=== PATIENT | female | born 1975 | race Caucasian/White ===

== ENCOUNTER 2016-05-05 10:05 | Emergency (ER) | payer SELFPAY ==
[~2016-05-05] VITALS: Ht 160 cm; Wt 55.2 kg
[~2016-05-05 10:05] MED LIST: LEVO25TA9 PO; MELO-267 PO; OLAN10TA21 PO; OMEP40CA52 PO; PREG200C PO; ROPI2TAB6 PO; TIZA4TAB4 PO; TRAM50TA4 PO; VENL75CA60 PO
[2016-05-05 10:14] VITALS: Ht 160 cm; Wt 55.2 kg
--- OUTSIDE RECORDS SUMMARY | 2016-05-05 10:15 | XMS REPORT | Referral Summary ---
Author Author [facility], Family Medicine Organization [facility] Address Unknown Phone Unavailable Care Team Providers Care Reservation Agent Name Role Phone Pritesh Vitale Primary Care Physician [phone] Encounter VC Date(s): 03/05/16 - 03/05/16 [facility], [address] [place] [id number] Discharge Diagnosis: Acute bronchitis Discharge Diagnosis: Tobacco use Discharge Disposition: 01-Home or Self Care Attending Physician: Lexy Delgado APRN Admitting Physician: Lexy Delgado APRN Vital Signs Most recent to 1 oldest [Reference Range]: Temperature Tympanic 36.4 degC [36.6-38.1 degC] *LOW* (03/05/16 12:59 PM) Peripheral Pulse 98 bpm Rate [60-100 bpm] (03/05/16 12:59 PM) Respiratory Rate 20 br/min [14-20 br/min] (03/05/16 12:59 PM) Blood Pressure 122/88 mmHg [90-140/60-90 mmHg] (03/05/16 12:59 PM) SpO2 98 % (03/05/16 12:59 PM) Problem List Condition Effective Dates Status Health Status Informant Hypothyroidism(Confi Active rmed) Allergies, Adverse Reactions, Alerts Substance Reaction Severity Status sulfamethoxazole vomiting rash Active trimethoprim vomiting rash Active Medications Estradiol Patch 1 patches, Topical, Thu/, 2 x week, 0 Refill(s) Start Date: 01/21/16 Status: Ordered famotidine 20 mg oral tablet 20 mg 1 tabs, Oral, Daily, 0 Refill(s) Start Date: 01/21/16 Status: Ordered levothyroxine 25 mcg (0.025 mg) oral tablet 25 mcg 1 tabs, Oral, Daily, # 30 tabs, 6 Refill(s), Pharmacy: [id number], 1 tabs Oral Daily Start Date: 02/11/16 Status: Ordered Lyrica 1 tabs, Oral, BID, 0 Refill(s) Start Date: 01/21/16 Status: Ordered Lyrica 50 mg oral capsule See Instructions, Take twicr daily with 100 mg twice daily for a total dose of 150 mg twice daily, # 60 caps, 0 Refill(s), [facility] Start Date: 02/18/16 Status: Ordered meloxicam 15 mg oral tablet 15 mg 1 tabs, Oral, Daily, 0 Refill(s) Start Date: 01/21/16 Status: Ordered omeprazole 40 mg oral delayed release capsule 40 mg 1 caps, Oral, Daily, 0 Refill(s) Start Date: 01/21/16 Status: Ordered rOPINIRole 2 mg oral tablet 2 mg 1 tabs, Oral, Daily, # 30 tabs, 3 Refill(s), Pharmacy: [id number], 1 tabs Oral Daily Start Date: 02/11/16 Status: Ordered Strattera 40 mg oral capsule 40 mg 1 caps, Oral, qAM, 0 Refill(s) Start Date: 01/21/16 Status: Ordered tiZANidine 4 mg oral tablet 4 mg 1 tabs, Oral, q8hr, # 90 tabs, 1 Refill(s), Pharmacy: [id number], 1 tabs Oral q8hr Start Date: 03/04/16 Status: Ordered traMADol 50 mg oral tablet 50 mg 1 tabs, Oral, q12hr, as needed for pain, [facility], # 30 tabs, 0 Refill(s) Start Date: 02/18/16 Status: Ordered venlafaxine 150 mg oral tablet, extended release 150 mg 1 tabs, Oral, Daily, Decreased to 75 mg., # 30 tabs, 0 Refill(s) Start Date: 01/21/16 Status: Ordered Results No data available for this section Immunizations No data available for this section Procedures Procedure Date Related Diagnosis Body Site R ankle surgery s/p fx1 06/06/15 Hysterectomy 1 one ovary removed 2008 oopherctomy2 2008 Append[address] Keturah 2R/T endometriosis Social History Social History Type Response Smoking Status Current every day smoker; Type: Cigarettes; Tobacco use per day: 1/2 pack or more Assessment and Plan Extracted from: Title: Office Visit Note-bronchitis Author: Lexy Delgado [employer] Date: 03/05/16 Assessment/Plan 1.Acute bronchitis Zithromax 2 tabs today, then one tablet daily for 4 days. Increase fluid intake. Enc good handwashing. Recommend OTC mucinex per package instruction. Recommend OTC Tylenol and/or Ibuprofen per package instructions as needed for fever, pain, and body aches. No aspirin. Symptoms should improve over the next 1-2 weeks. If symptoms get worse, spikes fever, inc cough or shortness of breath to notify the office for further evaluation. I do not feel that any further extensive workup is indicated. However the patient is counseled that should new symptoms develop or the symptoms worsen, further evaluation and testing may be warranted as those symptoms declare themselves and that followup is of vital importance. 2.Tobacco use Encourage smoking cessation.
--- OUTSIDE RECORDS SUMMARY | 2016-05-05 10:16 | XMS REPORT | Continuity of Care Document ---
Author Author [facility] Organization [facility] Address Unknown Phone Unavailable Support Name Relationship Address Phone MAMADOU ALEXANDER DO Caregiver [address] [address] Unavailable GIANNA RODRIGUES DO Caregiver [address] [place] [address] Unavailable ROSITA NUNO Next Of Kin [address] [place] [address] Insurance Providers Guarantor YaakovJaciRadha Address [address] [place] [address] C Email [email or web address] Payer Self Pay Subscriber's Name Radha Nuno Relationship 18 Self Advance Directives Directive Response Recorded Date/Time Advanced Directives Type None 04/11/16 2:45pm Chief Complaint and Reason for Visit Chief Complaint Psychiatric Problems Reason for Visit Chronic ankle pain Schizoaffective disorder Problems Active Problems Medical Problem Onset Date Status Bimalleolar fracture of right ankle Unknown Acute Chronic ankle pain Unknown Acute Chronic pain Unknown Closed fracture dislocation of right ankle joint Unknown Acute Dehydration Unknown Acute Elevated liver enzymes Unknown Acute Gastroenteritis Unknown Acute Headache Unknown Acute Headache Unknown Acute Hypokalemia Unknown Acute Hyponatremia Unknown Acute Peripheral edema Unknown Acute Pyelonephritis Unknown Acute Schizoaffective disorder Unknown Acute Schizoaffective disorder, bipolar type Unknown Acute Shoulder strain Unknown Acute Wound dehiscence Unknown Acute Past Problems Medical Problem Onset Date Atypical chest pain Unknown Chest pressure Unknown Chronic pain of right ankle Unknown Diarrhea Unknown Dizziness Unknown Facial numbness Unknown Facial numbness Unknown Facial pain Unknown Fall on same level as cause of accidental injury Unknown Gastroenteritis Unknown Hip strain Unknown Intractable vascular headache Unknown Knee strain Unknown Muscle spasm Unknown Muscle spasms of lower extremity Unknown Nausea & vomiting Unknown Numbness and tingling Unknown Patient left without being seen Unknown Right ankle sprain Unknown Medications Current Home Medications Medication Dose Units Route Directions Days Qty Instructions Start Date Levothyroxine Sodium 25 Mcg Tablet 25 Mg Oral Before Breakfast Meloxicam 15 Mg Tablet 15 Mg Oral Daily 04/11/16 Olanzapine 10 Mg Tablet 10 Mg Oral Three Times A Day 04/11/16 Omeprazole 40 Mg Capsule.dr 40 Mg Oral Before Breakfast 03/19/16 Pregabalin (Lyrica) 200 Mg Capsule 200 Mg Oral Twice A Day Ropinirole Hcl 2 Mg Tablet 2 Mg Oral Daily 03/19/16 Tizanidine Hcl 4 Mg Tablet 4 Mg Oral Q8h @ 0100/0900/1700 Tramadol Hcl 50 Mg Tablet 50 Mg Oral Twice A Day 03/19/16 Venlafaxine Hcl (Effexor Xr) 75 Mg Cap.er.24h 75 Mg Oral Daily Past Home Medications Medication Directions Ordered Status Acetaminophen (Tylenol) 325 Mg Tablet, 1-2 Tab Oral Four Times Daily as needed for Prn Orders 06/07/15 Discontinued Acetaminophen/Hydrocodone Bitart (Hydrocodone-Acetamin 2.5-108/5) 5 Ml Solution , 5 Ml Oral Every 4 Hours as needed for Pain 12/14/15 Discontinued Albuterol Sulfate (Ventolin Hfa 90 Mcg/Actuation) 18 Gm Hfa.aer.ad, 1-2 Puff Oral Inhalation Every 4 Hours as needed for Cough/Congestion 11/09/15 Discontinued Albuterol Sulfate (Albuterol Sulfate Hfa) 8.5 Gm Hfa.aer.ad, 1 - 2 Puff Inhalation Every 4-6 Hours as needed 12/19/11 Discontinued Albuterol Sulfate (Albuterol Sulfate Hfa) 8.5 Gm Hfa.aer.ad, Four Times Daily 12/19/10 Discontinued Albuterol Sulfate 1.25 Mg/3 Ml Vial.neb., 1.25 Mg Inhalation Twice A Day 19/01 Discontinued Bupropion Hcl (Wellbutrin Xl) 300 Mg Tab.er.24h, 1 Oral Daily 10/27/13 Discontinued Cyanocobalamin (Vitamin B-12) (Vitamin B-12) 1,000 Mcg Tablet, 1 Tab Oral Daily 11/26/15 Discontinued Desonide 15 Gm Cream.gm., 1 Applic Topical As Needed 09/05/11 Discontinued Desvenlafaxine Succinate (Pristiq Er) 100 Mg Tab.er.24h, 100 Mg Oral Daily Discontinued Diphenhydramine Hcl (Benadryl Allergy) 25 Mg Tablet, 2 Tab Oral Every 4 Hours as needed for Allery Symptoms 01/01/15 Discontinued Diphenhydramine Hcl (Benadryl Allergy) 25 Mg Tablet, 25 Mg Oral As Needed 23/02 Discontinued Estradiol (Minivelle) 1 Each Patch.tdsw, 1 Patch Transderm Twice A Week 11/08 Discontinued Fluticasone Propionate (Flonase Allergy Relief 50 Mcg/Actuation Nasal) 9.9 Ml [place].susp, 1 SprayEach Nostril Daily 11/09/15 Discontinued Folic Acid 1 Mg Tablet, 1 Tab Oral Daily 11/26/15 Discontinued Geodon , 02/26/14 Discontinued Guaifenesin/Dextromethorphan (Mucinex Fast-Max Dm Max Liquid) 180 Ml Liquid, 2 Tbs Oral As Needed 01/01/15 Discontinued Hydrocodone Bit/Acetaminophen (Lortab 5) 1 Tab Tablet, 1 Tab Oral As Needed 09/12/11 Discontinued Hydrocodone/Acetaminophen ([place] 5-325 Tablet) 1 Each Tablet, 1 Tab Oral Every 4-6 Hours 01/01/15 Discontinued Iron , Daily 06/22/08 Discontinued Levofloxacin 750 Mg Tablet, 750 Mg Oral Daily 12/24/15 Discontinued Levothyroxine Sodium 25 Mcg Tablet, 25 Mcg Oral Before Breakfast 11/26/15 Discontinued Melatonin 10 Mg Capsule, 10 Mg Oral Bedtime as needed for Insomnia 11/09/15 Discontinued Nitrofurantoin Macrocrystal (Nitrofurantoin) 100 Mg Capsule, 100 Mg Oral Twice A Day 09/12/11 Discontinued Omeprazole 40 Mg Capsule.dr, 40 Mg Oral Before Breakfast 11/09/15 Discontinued Ondansetron (Zofran Odt) 4 Mg Tab.rapdis, 4 Mg Oral Every 6-8 Hours 01/01/15 Discontinued Ondansetron Hcl (Zofran) 4 Mg Tablet, 4 Mg Oral As Needed 06/22/08 Discontinued Oxycodone/Acetaminophen (Percocet 7.5-325 Mg Tablet) 1 Each Tablet, 2 Tab Oral Every 6 Hours as needed for Pain 06/07/15 Discontinued Pantoprazole Sodium (Protonix) 40 Mg Tablet.dr, 40 Mg Oral Daily 06/22/08 Discontinued Phenazopyridine Hcl 200 Mg Tablet, 200 Mg Oral Three Times A Day 09/12/11 Discontinued Potassium Chloride 10 Meq Capsule.sa, 10 Meq Oral Daily 12/22/10 Discontinued Promethazine Hcl 25 Mg Tablet, 25 Mg Oral Twice A Day 12/19/10 Discontinued Propoxyphene/Acetaminophen (Darvocet-N 100 Tablet) 1 Tab Tablet, 1 Tab Oral As Needed 06/22/08 Discontinued Ropinirole Hcl 1 Mg Tablet, 1 Mg Oral Daily 11/26/15 Discontinued Saphris (Asenapine) , 10 Mg Sublingual Twice A Day 09/05/11 Discontinued Strattera , 02/26/14 Discontinued Trazodone Hcl 100 Mg Tablet, 100 Mg Oral Twice A Day 12/19/10 Discontinued Triamcinolone Acetonide (Triamcinolone Acetonide 0.1%) 15 Gm Cream.gm., 1 Applic Topical As Needed 09/05/11 Discontinued Ziprasidone Hcl (Geodon) 60 Mg Capsule, 60 Mg Twice A Day 10/27/13 Discontinued Social History Social History Problem Response Recorded Date/Time Onset Date Status Chewing Tobacco Status No 05/16/2013 5:20pm Not Applicable Not Applicable Hx Substance Use Y HX OF MARIJUANA FOR PAIN 04/11/2016 2:45pm Not Applicable Not Applicable Hx Alcohol Use No 04/11/2016 2:45pm Not Applicable Not Applicable Has the pt used tobacco in the last 12 months Yes 12/20/2015 11:05am Not Applicable Not Applicable Tobacco Usage smoke 01/10/2015 8:38am Not Applicable Not Applicable Query Response Start Date Stop Date Smoking Status Current every day smoker Hospital Discharge Instructions No hospital discharge instructions. Plan of Care Discharge Date 04/11/16 6:07pm Disposition 01 DISCHARGED HOME, SELF-CARE Condition at Discharge Improved Instructions/Education Provided Chronic Pain (ED) Prescriptions See Medication Section Referrals GIANNA RODRIGUES DO Address: [address] [place] [address] [phone] Note: VANNESSA CARMEN MD Address: [address] [place] [id number] Additional Instructions/Education Take your prescribed medications as ordered. Follow with your PCP Thursday for re-evaluation and referral to lead based paint technician. Keep appointment with PV Thursday. Follow treatment plan. Care Plan and Goals Physician Care Plan Problem: Chronic ankle pain, Scizoaffective disorder Goal: Follow up with primary care provider Instructions: Take medications and follow care plan as discussed/written Functional Status No functional status results. Allergies, Adverse Reactions, Alerts Allergen Type Severity Reaction Status Last Updated Penicillin Allergy Unknown RASH Active 04/11/16 Sulfa (Sulfonamide Antibiotics) Allergy Unknown Active 04/11/16 Sulfamethoxazole Allergy Unknown Active 04/11/16 Trimethoprim Allergy Unknown Active 04/11/16 Gluten Adverse Reaction Intermediate SICK/ VOMITING Active 04/11/16 Immunizations Query Response on File Recorded Date/Time Hx Influenza Vaccination Y NOV 2015 12/20/15 11:05am Hx Pneumococcal Vaccination No 12/20/15 11:05am Hx Tetanus, Diptheria, Pertussis N/A SKIN INTACT 02/26/14 10:36pm Hx Influenza Vaccination Y NOV 2015 12/20/15 11:05am Hx Tetanus, Diptheria, Pertussis N/A SKIN INTACT 02/26/14 10:36pm DTaP Vaccine History 201404/11/16 2:45pm Influenza Vaccine Hx 06/07/15 04/11/16 2:45pm Tdap Vaccine Hx UTD 01/04/16 1:21am Vital Signs Acute Vital Signs Vital Response Date/Time Temperature (Fahrenheit) 98.0 deg F (96.8 - 99.1) 04/11/2016 6:18pm Temperature (Calculated Celsius) 36.90156 degrees C (36.0 - 37.3) 04/11/2016 6:18pm Pulse Rate (adult) 86 bpm (60 - 100) 04/11/2016 6:18pm Respiratory Rate 20 breaths/min (10 - 20) 04/11/2016 6:18pm O2 Sat by Pulse Oximetry 97 % (90 - 100) 04/11/2016 6:18pm Blood Pressure 145/76 mm Hg 04/11/2016 6:18pm Height (Feet) 5 feet 04/11/2016 2:45pm Height (Inches) 2.00 inches 04/11/2016 2:45pm Weight (Kilograms) 57.200 kg 04/11/2016 2:45pm Body Mass Index (BMI) 23.0 04/11/2016 2:45pm Results Laboratory Results Test Name Result Units Flags Reference Collection Date/Time Result Date/ Time Comments White Blood Count 9.6 T/MM3 4.5-11.0 04/11/2016 3:40pm 04/11/2016 3: 45pm Red Blood Count 4.98 M/MM3 4.00-5.20 04/11/2016 3:40pm 04/11/2016 3: 45pm Hemoglobin 14.3 GM/DL 12-16 04/11/2016 3:40pm 04/11/2016 3:45pm Hematocrit 42.3 % 36-46 04/11/2016 3:40pm 04/11/2016 3:45pm Mean Corpuscular Volume 84.9 UM3 80-100 04/11/2016 3:40pm 04/11/2016 3: 45pm Mean Corpuscular Hemoglobin 28.7 UUG 26-34 04/11/2016 3:40pm 2016 3:45pm Mean Corpuscular Hemoglobin Concent 33.8 GM/DL 31-37 04/11/2016 3:40pm 04/11/2016 3:45pm RDW Standard Deviation 50.0 FL 36.9-50.2 04/11/2016 3:40pm 04/11/2016 3 :45pm Platelet Count 393 T/MM3 130-400 04/11/2016 3:40pm 04/11/2016 3:45pm Mean Platelet Volume 9.8 UM3 9.4-12.4 04/11/2016 3:40pm 04/11/2016 3: 45pm Neutrophils (%) (Auto) 68.0 % H 33-66 04/11/2016 3:40pm 04/11/2016 3: 45pm Lymphocytes (%) (Auto) 24.7 % 23-45 04/11/2016 3:40pm 04/11/2016 3: 45pm Monocytes (%) (Auto) 5.4 % 0-9.0 04/11/2016 3:40pm 04/11/2016 3:45pm Eosinophils (%) (Auto) 1.3 % 0-4 04/11/2016 3:40pm 04/11/2016 3:45pm Basophils (%) (Auto) 0.3 % 0-2 04/11/2016 3:40pm 04/11/2016 3:45pm Immature Granulocyte % (Auto) 0.3 % 0.0-0.5 04/11/2016 3:40pm 2016 3:45pm Absolute Neutrophils (auto) 6.5 T/MM3 1.8-7.7 04/11/2016 3:40pm 2016 3:45pm Absolute Lymphocytes (auto) 2.4 T/MM3 1-4.8 04/11/2016 3:40pm 2016 3:45pm Absolute Monocytes (auto) 0.5 T/MM3 0-0.8 04/11/2016 3:40pm 04/11/2016 3:45pm Absolute Eosinophils (auto) 0.1 T/MM3 0-0.5 04/11/2016 3:40pm 2016 3:45pm Absolute Basophils (auto) 0.0 T/MM3 0-0.2 04/11/2016 3:40pm 04/11/2016 3:45pm Absolute Immature Granulocyte (auto 0.03 T/MM3 0.00-0.03 04/11/2016 3: 40pm 04/11/2016 3:45pm Icterus Index < 2 0-7 04/11/2016 3:40pm 04/11/2016 3:55pm Chemistry Specimen Hemolysis < 15 0-25 04/11/2016 3:40pm 04/11/2016 3 :55pm 0-25: Specimen Exhibited No Hemolysis. Turbidity < 20 0-20 04/11/2016 3:40pm 04/11/2016 3:55pm Sodium Level 144 MEQ/L 134-144 04/11/2016 3:40pm 04/11/2016 3:55pm Potassium Level 3.8 MEQ/L 3.6-5 04/11/2016 3:40pm 04/11/2016 3:55pm Chloride Level 110 MEQ/L H 98-107 04/11/2016 3:40pm 04/11/2016 3:55pm Carbon Dioxide Level 25 MEQ/L 22-30 04/11/2016 3:40pm 04/11/2016 3: 55pm Anion Gap 9 MEQ/L 5-15 04/11/2016 3:40pm 04/11/2016 3:55pm Blood Urea Nitrogen 9.0 MG/DL 7-17 04/11/2016 3:40pm 04/11/2016 3:55pm Creatinine 0.8 MG/DL 0.7-1.2 04/11/2016 3:40pm 04/11/2016 3:55pm BUN/Creatinine Ratio 11 RATIO 6-26 04/11/2016 3:40pm 04/11/2016 3:55pm Glomerular Filtration Rate Calc 80 04/11/2016 3:40pm 04/11/2016 3: 55pm Glucose Level 112 MG/DL H 65-110 04/11/2016 3:40pm 04/11/2016 3:55pm Calculated Osmolality 277 MOSM/KG 261-280 04/11/2016 3:40pm 04/11/2016 3:55pm Calcium Level 10.3 MG/DL H 8.4-10.2 04/11/2016 3:40pm 04/11/2016 3:55pm Total Bilirubin 0.60 MG/DL 0.20-1.30 04/11/2016 3:40pm 04/11/2016 3: 55pm Alkaline Phosphatase 102 U/L 38-126 04/11/2016 3:40pm 04/11/2016 3: 55pm Total Protein 8.2 G/DL 6.3-8.2 04/11/2016 3:40pm 04/11/2016 3:55pm Albumin 4.5 G/DL 3.5-5.0 04/11/2016 3:40pm 04/11/2016 3:55pm Globulin 3.7 G/DL H 2.4-3.6 04/11/2016 3:40pm 04/11/2016 3:55pm Albumin/Globulin Ratio 1.2 RATIO 1.1-2.2 04/11/2016 3:40pm 04/11/2016 3 :55pm Aspartate Amino Transf (AST/SGOT) 19 U/L 14-36 04/11/2016 3:40pm 2016 3:55pm Alanine Aminotransferase (ALT/SGPT) 30 U/L 9-52 04/11/2016 3:40pm 04/11 3:55pm Acetaminophen Level < 10 UG/ML L 10-04/11/2016 3:40pm 04/11/2016 4: 03pm TOXIC <4 HR POST INGESTION: >150 MG/L; TOXIC <12 HR POST INGESTION: >50 MG/L Salicylates Level < 1.0 MG/DL L 2-20 04/11/2016 3:40pm 04/11/2016 4: 03pm Alcohol, Quantitative <10 MG/DL <10 04/11/2016 3:40pm 04/11/2016 4: 03pm Thyroid Stimulating Hormone (TSH) 2.95 MIU/L D 0.47-4.68 04/11/2016 3: 40pm 04/11/2016 4:29pm Urine Collection Type VOIDED-NOT CC-MIDSTR 04/11/2016 4:16pm 2016 4:39pm Urine Color YELLOW YELLOW 04/11/2016 4:16pm 04/11/2016 4:39pm Urine Turbidity CLEAR CLEAR 04/11/2016 4:16pm 04/11/2016 4:39pm Urine Specific [place] 1.015 1.015-1.025 04/11/2016 4:16pm 2016 4:39pm Urine pH 7.0 5.0-8.0 04/11/2016 4:16pm 04/11/2016 4:39pm Urine Leukocyte Esterase NEGATIVE NEGATIVE 04/11/2016 4:16pm 2016 4:39pm Urine Nitrite NEGATIVE NEGATIVE 04/11/2016 4:16pm 04/11/2016 4:39pm Urine Protein NEGATIVE NEGATIVE 04/11/2016 4:16pm 04/11/2016 4:39pm Urine Glucose (UA) NEGATIVE NEGATIVE 04/11/2016 4:16pm 04/11/2016 4: 39pm Urine Ketones NEGATIVE NEGATIVE 04/11/2016 4:16pm 04/11/2016 4:39pm Urine Urobilinogen 0.2 EU/DL NORMAL 04/11/2016 4:16pm 04/11/2016 4: 39pm Urine Bilirubin NEGATIVE NEGATIVE 04/11/2016 4:16pm 04/11/2016 4: 39pm Urine Blood NEGATIVE NEGATIVE 04/11/2016 4:16pm 04/11/2016 4:39pm Urinalysis Comment MICROSCOPIC NOT IND. 04/11/2016 4:16pm 2016 4:39pm Procedures Procedure Status Date Provider(s) Routine venipuncture Completed 01/19/16 Comprehen metabolic panel Completed 01/19/16 Emergency dept visit Completed 01/19/16 Mri lumbar spine w/o dye Completed 02/27/16 Musc test done w/n test comp Completed 03/19/16 Nrv cndj test 11-12 studies Completed 03/19/16 Ct head/brain w/o dye Completed 03/19/16 Ther/proph/diag inj sc/im Completed 03/19/16 Ther/proph/diag inj sc/im Completed 03/19/16 Emergency dept visit Completed 03/19/16 [id number]"INJECTION, PROCHLORPERAZINE, UP TO 10 MG" Completed 01/11/17 [id number]"INJECTION, HYDROMORPHONE, UP TO 4 MG" Completed 03/19/16"INJECTION, KETOROLAC TROMETHAMINE, PER 15 MG" Completed 03/19/16"INJECTION, ORPHENADRINE CITRATE, UP TO 60 MG" Completed 03/19/16 Encounters Encounter Location Arrival/Admit Date Discharge/Depart Date Attending Provider Departed Emergency Room [facility] 04/11/16 2:44pm 04/11/16 6: 07pm MAMADOU ALEXANDER DO Departed Emergency Room [facility] 03/19/16 8:46pm 03/19/16 9: 51pm SWATI HOWARD MD Registered Clinic [facility] 03/19/16 1:52pm KAREN VALLADARES MD Registered [facility] 02/27/16 1:55pm KAREN VALLADARES MD Departed Emergency Room [facility] 01/19/16 11:31pm 01/20/16 2: 03am STEPHEN MARINO DO Recent Diagnosis
--- OUTSIDE RECORDS SUMMARY | 2016-05-05 10:16 | XMS REPORT | Referral Summary ---
Author Author [facility], Family Medicine Organization [facility] Address Unknown Phone Unavailable Care Team Providers Care Photography Teacher Name Role Phone Pritesh Vitale Primary Care Physician [phone] Encounter Date(s): 03/11/16 - 03/11/16 [facility], [address] [place] [address]- Discharge Diagnosis: Muscle twitching Discharge Diagnosis: Other chronic osteomyelitis, right ankle and foot Discharge Diagnosis: Acute bronchitis Discharge Diagnosis: Leg paresthesia Discharge Diagnosis: Peripheral neuropathic pain Discharge Diagnosis: Hypothyroidism Discharge Disposition: 01-Home or Self Care Attending Physician: Lexy Delgado APRN Admitting Physician: Lexy Delgado APRN Vital Signs Most recent to 1 oldest [Reference Range]: Temperature Tympanic 35.9 degC [36.6-38.1 degC] *LOW* (03/11/16 9:35 AM) Peripheral Pulse 88 bpm Rate [60-100 bpm] (03/11/16 9:35 AM) Blood Pressure 92/50 mmHg [90-140/60-90 mmHg] (03/11/16 9:35 AM) Problem List Condition Effective Dates Status Health Status Informant Hypothyroidism(Confi Active rmed) Allergies, Adverse Reactions, Alerts Substance Reaction Severity Status sulfamethoxazole vomiting rash Active trimethoprim vomiting rash Active Medications Estradiol Patch 1 patches, Topical, Mon/Thurs, 2 x week, 0 Refill(s) Start Date: 01/21/16 Status: Ordered famotidine 20 mg oral tablet 20 mg 1 tabs, Oral, Daily, 0 Refill(s) Start Date: 01/21/16 Status: Ordered levothyroxine 25 mcg (0.025 mg) oral tablet 25 mcg 1 tabs, Oral, Daily, # 30 tabs, 6 Refill(s), Pharmacy: [id number], 1 tabs Oral Daily Start Date: 02/11/16 [...] tablet 15 mg 1 tabs, Oral, Daily, # 30 tabs, 2 Refill(s), Pharmacy: [id number], 1 tabs Oral Daily Start Date: 03/11/16 Status: Ordered omeprazole 40 mg oral delayed release capsule 40 mg 1 caps, Oral, Daily, 0 Refill(s) Start Date: 01/21/16 Status: Ordered rOPINIRole 2 mg oral tablet 2 mg 1 tabs, Oral, Daily, # 30 tabs, 3 Refill(s), Pharmacy: [id number], 1 tabs Oral Daily Start Date: 02/11/16 Status: Ordered Strattera 40 mg oral capsule 40 mg 1 caps, Oral, qAM, 0 Refill(s) Start Date: 01/21/16 Status: Ordered tiZANidine 4 mg oral tablet 4 mg 1 tabs, Oral, q8hr, # 90 tabs, 1 Refill(s), Pharmacy: [id number], 1 tabs Oral q8hr Start Date: 03/04/16 Status: Ordered venlafaxine 150 mg oral tablet, extended release 150 mg 1 tabs, Oral, Daily, Decreased to 75 mg., # 30 tabs, 0 Refill(s) Start Date: 01/21/16 Status: Ordered Results Chemistry Most recent to 1 oldest [Reference Range]: TSH with Reflex Free 0.83 T4 [0.35-4.94] (03/11/16 10:30 AM) Immunizations No data available for this section Procedures Procedure Date Related Diagnosis Body Site Collection of venous blood by venipuncture 03/11/16 R ankle surgery s/p fx1 06/06/15 Hysterectomy 1 one ovary removed 2008 oopherctomy2 2008 Appendectomy [address] Keturah 2R/T endometriosis Social History Social History Type Response Smoking Status Current every day smoker; Type: Cigarettes; Tobacco use per day: 1/2 pack or more Assessment and Plan Extracted from: Title: Office Visit Note-med check Author: Lexy Delgado APRN Date: Assessment/Plan 1.Hypothyroidism Recheck TSH today. We'll notify herof results. Ordered: TSH with Reflex Free T4 2.Leg paresthesia Continue to follow with Dr. Sellers. Cont Lyrica. 3.Muscle twitching Continue Requip at same dose. 4.Other chronic osteomyelitis, right ankle and foot Monitor closely for increased drainage or redness. 5.Peripheral neuropathic pain DC tramadol as it was minimallyofficial. Follow-up with Dr. Sellers for issues. 6.Acute bronchitis I think her cough is post infectious. Recommend continued use of Mucinex. Increase fluid intake. Humidified air. Encourage her to continue following with [facility]. Some of her issues may be related to medicationeffects. Discussed with patient the importance of trying to improve her general health by lifestyle changes. Encouraged her to decrease her Dr. Garcia intake and change towater. Discussed good nutrition.Avoid illicit drugs. Encouraged her to quit smoking. Encourage daily exercise. Discussed good sleep hygiene. Care of herself well in general healthfeel better.
--- OUTSIDE RECORDS SUMMARY | 2016-05-05 10:17 | XMS REPORT | Referral Summary ---
Author Author [facility] Organization [facility] Address Unknown Phone Unavailable Care Team Providers Care Tie Buyer Name Role Phone No PCP, States Primary Care Physician [phone] Encounter Date(s): 01/21/16 - 01/21/16 [facility] [address] [place] [address]- Discharge Diagnosis: Syncope Discharge Diagnosis: Muscle twitching Discharge Diagnosis: Schizo affective schizophrenia Discharge Diagnosis: Moderate major depression Discharge Diagnosis: Other chronic osteomyelitis, right ankle and foot Discharge Diagnosis: Hx of substance abuse Discharge Diagnosis: Weight loss Discharge Diagnosis: Bipolar disorder Discharge Disposition: 01-Home or Self Care Attending Physician: Lexy Delgado APRN Admitting Physician: Lexy Delgado APRN Vital Signs Most recent to 1 oldest [Reference Range]: Temperature Tympanic 36 degC [36.6-38.1 degC] *LOW* (01/21/16 8:41 AM) Peripheral Pulse 64 bpm Rate [60-100 bpm] (01/21/16 8:41 AM) Blood Pressure 100/60 mmHg [90-140/60-90 mmHg] (01/21/16 8:41 AM) Problem List No data available for this section Allergies, Adverse Reactions, Alerts Substance Reaction Severity Status sulfamethoxazole vomiting rash Active trimethoprim vomiting rash Active Medications Estradiol Patch 1 patches, Topical, Mon/, 2 x week, 0 Refill(s) Start Date: 01/21/16 Status: Ordered famotidine 20 mg oral tablet 20 mg 1 tabs, Oral, Daily, 0 Refill(s) Start Date: 01/21/16 Status: Ordered levoFLOXacin 750 mg oral tablet mg tabs, Oral, q24hr, 0 Refill(s) Start Date: 01/12/16 Status: Ordered Lyrica 1 tabs, Oral, BID, 0 Refill(s) Start Date: 01/21/16 Status: Ordered meloxicam 15 mg oral tablet 15 mg 1 tabs, Oral, Daily, 0 Refill(s) Start Date: 01/21/16 Status: Ordered omeprazole 40 mg oral delayed release capsule 40 mg 1 caps, Oral, Daily, 0 Refill(s) Start Date: 01/21/16 Status: Ordered Strattera 40 mg oral capsule 40 mg 1 caps, Oral, qAM, 0 Refill(s) Start Date: 01/21/16 Status: Ordered tiZANidine 4 mg oral tablet 4 mg 1 tabs, Oral, q8hr, 0 Refill(s) Start Date: 01/21/16 Status: Ordered venlafaxine 150 mg oral tablet, [...] and Plan Extracted from: Title: Office Visit Note-new Author: Lexy Delgado BURR BENCH OPERATOR Date: patient Assessment/Plan 1.Syncope Unknown etiology. Has had cardiology eval per pt. Considering outpatient evaluation that she has had already a think it's worthwhile to gather information, blanca then set up a plan of care from there. Discussed with patient the importance of taking care of herself general. Good hydration. Good nutrition. Quit smoking. Get adequate sleep. Plan follow-up in one week or sooner if anything changes.Patient sign multiple medical releases today. I instructed her not to drive. Work restrictiongiven to say no driving. Recommend she limit her work days to 8 hours a day. 2.Muscle twitching I question if r/t Effexor + Levaquin. 3.Weight loss unknown etiology. Gather last labs. Enc high protein diet. Good nutrition. Avoid soda. 4.Other chronic osteomyelitis, right ankle and foot Cont to follow with Dr. Rebollar. 5.Schizo affective schizophrenia Talked with Rupali Torres APRN at . Multiple no shows. On Strattera since 2013. Effexor started in June. According to refill record does not appear to be taking Strattera. Discussed possible side effects of Effexor. She agrees to decrease the dose to 75 mg a day. I can reevaluate her next week if she's had any improvement in her symptomatology is we'll discontinue the Effexor. She will plan to follow up with her and get her back into counseling. 6.Bipolar disorder 7.Moderate major depression 8.Hx of substance abuse Patient has not been showing up for her drug abuse counseling sessions purlucas Torres.
--- OUTSIDE RECORDS SUMMARY | 2016-05-05 10:17 | XMS REPORT | Referral Summary ---
Author Author [facility], [facility] Organization [facility] Address Unknown Phone Unavailable Care Team Providers Care Preboarder Name Role Phone Pritesh Vitale Primary Care Physician [phone] Encounter Date(s): 02/11/16 - 02/11/16 [facility] [address] [place] [address]- Discharge Diagnosis: Hypothyroidism Discharge Diagnosis: Right ankle pain Discharge Diagnosis: Restless leg syndrome Discharge Diagnosis: Leg paresthesia Discharge Diagnosis: Schizoaffective disorder Discharge Diagnosis: Depression Discharge Diagnosis: Major depressive disorder, recurrent, mild Discharge Diagnosis: Schizoaffective disorder, depressive type Discharge Disposition: 01-Home or Self Care Attending Physician: Jayjay Vitale MD Admitting Physician: Jayjay Vitale MD Vital Signs Most recent to 1 oldest [Reference Range]: Temperature Tympanic 36.0 degC [36.6-38.1 degC] *LOW* (02/11/16 8:34 AM) Peripheral Pulse 100 bpm Rate [60-100 bpm] (02/11/16 8:34 AM) Respiratory Rate 16 br/min [14-20 br/min] (02/11/16 8:34 AM) Blood Pressure 104/80 mmHg [90-140/60-90 mmHg] (02/11/16 8:34 AM) Problem List Condition Effective Dates Status [...] Daily, # 30 tabs, 6 Refill(s), [id number], 1 tabs Oral Daily Start [...] Daily, # 30 tabs, 3 Refill(s), [id number], 1 tabs Oral Daily Start [...] Hysterectomy 1 one ovary removed 2008 oopherctomy2 2009 Appendectomy [address] Keturah 2R/T endometriosis Social History Social History Type Response Smoking Status Current every day smoker; Type: Cigarettes; Tobacco use per day: 1/2 pack or more Assessment and Plan Extracted from: Title: Office Visit Note Author: Jayjay Vitale MD Date: 02/11/16 Assessment/Plan 1.Hypothyroidism I recommended resuming [id number] g dailyarea and recheck TSH in 6-8 weeks. Ordered: Office Visit Level 4 Est 61058 2.Restless leg syndrome I'm going to increase her ropinirole dosage to 2 mg at at bedtime. She'll keep me postedas to whether this is beneficial. I 've recommended a one-month follow-up. Ordered: Office Visit Level 4 Est 36275 3.Right ankle pain No specific new treatment at this time. She will continue to follow-up with Dr. Rebollar. Ordered: Office Visit Level 4 Est 78892 4.Leg paresthesia She has a follow-up appointment with Dr. Newby later this month I encouraged her to keep that appointment for ongoing evaluation of this problem. Ordered: Office Visit Level 4 Est 46452 5.Depression, No change in current treatment. I did encourage her to continue to follow up with [facility]. Major depressive disorder, recurrent, mild Ordered: Office Visit Level 4 Est 49856 6.Schizoaffective disorder, Continue to follow-up with [facility]. Schizoaffective disorder, depressive type Ordered: Office Visit Level 4 Est 56709
--- OUTSIDE RECORDS SUMMARY | 2016-05-05 10:19 | XMS REPORT | Continuity of Care Document ---
Author Author [facility] Organization [facility] Address Unknown Phone Unavailable Support Name Relationship Address Phone BKLUIS FOWLER Caregiver [facility] [address] [place], [place] [phone] SAMANTHA GARCIA MD Caregiver [facility] [address] [place] [address] FLORIDALMA SCOTT Next Of Kin [address] [place] [address] CP Insurance Providers Payer Name Policy Number Subscriber Name Relationship Self Pay Donna Nuno 19 Self Problems Medical Problems Problem Onset Date Status Gastroenteritis Unknown Active Elevated liver enzymes Unknown Active Peripheral edema Unknown Active Headache Unknown Active Headache Unknown Active Medications Medication Dose Route Sig Days/Qty Instructions Order Date Discontinued Date Status Propoxyphene/Acetaminophen 1 Tab PO NEEDED 06/22/08 09/24/08 Discontinued [Iron ] DAILY 06/22/08 09/24/08 Discontinued Pantoprazole Sodium 40 Mg PO DAILY 06/22/08 09/24/08 Discontinued Ondansetron Hcl 4 Mg PO NEEDED 06/22/08 09/24/08 Discontinued Trazodone Hcl 100 Mg PO TWICE A DAY 12/19/10 03/16/11 Discontinued Promethazine Hcl 25 Mg PO TWICE A DAY 12/19/10 03/16/11 Discontinued Albuterol Sulfate FOUR TIMES DAILY 12/19/10 03/16/11 Discontinued Albuterol Sulfate 1.25 Mg IH TWICE A DAY 12/19/10 03/16/11 Discontinued Potassium Chloride 10 Meq PO DAILY 12/22/10 03/16/11 Discontinued Diphenhydramine Hcl 25 Mg PO NEEDED 08/25/11 12/19/11 Discontinued [Saphris (asenapine)] 10 Mg SL TWICE A DAY 09/05/11 12/19/11 Discontinued Desonide 1 Applic TP NEEDED 09/05/11 09/12/11 Discontinued Triamcinolone Acetonide 1 Applic TP NEEDED 09/05/11 09/12/11 Discontinued Phenazopyridine Hcl 200 Mg PO THREE TIMES A DAY 09/12/11 12/19/11 Discontinued Nitrofurantoin Macrocrystal 100 Mg PO TWICE A DAY 09/12/11 12/19/11 Discontinued Hydrocodone Bit/Acetaminophen 1 Tab PO NEEDED 09/12/11 12/19/11 Discontinued Albuterol Sulfate 1 - 2 Puff INH EVERY 4-6 HOURS PRN 12/19/11 Discontinued Desvenlafaxine Succinate 50 Mg PO DAILY 05/12/13 Active Ziprasidone HCl 60 Mg TWICE A DAY 10/27/13 Active Bupropion HCl 1 PO DAILY 10/27/13 Active Social History Social History Problem Response Recorded Date/Time Smoking Status Current every day smoker 10/27/2013 10:30am When did patient START smoking? 1990 10/27/2013 10:30am When did patient STOP smoking? N/A 10/27/2013 10:30am Chewing Tobacco Status No 05/16/2013 5:20pm Hx Substance Use N HX OF 10/27/2013 10:30am Hx Alcohol Use No 10/27/2013 10:30am Query Response Start Date Stop Date Smoking Status Current every day smoker Hospital Discharge Instructions No hospital discharge instructions. Plan of Care No plan of care. Functional Status Query Response Date Recorded Physical Hygiene Self October 27, 2013 10:30am Disabilities None October 27, 2013 10:30am Devices Used None October 27, 2013 10:30am Dressing Self October 27, 2013 10:30am Ambulation Self October 27, 2013 10:30am Diet Self October 27, 2013 10:30am Mental Status Alert Oriented October 27, 2013 10:30am Disabilities None October 27, 2013 10:30am Devices Used None October 27, 2013 10:30am Physical Hygiene Self October 27, 2013 10:30am Dressing Self October 27, 2013 10:30am Ambulation Self October 27, 2013 10:30am Diet Self October 27, 2013 10:30am Allergies, Adverse Reactions, Alerts Allergen Type Severity Reaction Status Last Updated Penicillin Allergy Unknown RASH Active 10/27/13 Sulfa (Sulfonamide Antibiotics) Allergy Unknown Active 10/27/13 Sulfamethoxazole Allergy Unknown Active 10/27/13 Trimethoprim Allergy Unknown Active 10/27/13 Gluten Adverse Reaction Intermediate SICK/ VOMITING Active 10/27/13 Immunizations Name Given Type Hx Influenza Vaccination Yes Historical Hx Pneumococcal Vaccination No Historical Hx Tetanus, Diptheria, Pertussis N/A SKIN INTACT Historical Hx Influenza Vaccination Yes Historical Hx Tetanus, Diptheria, Pertussis N/A SKIN INTACT Historical Vital Signs Acute Vital Signs Vital Response Date/Time Temperature (Fahrenheit) 97.9 deg F (96.8 - 99.1) Temperature (Calculated Celsius) 36.49506 degrees C (36.0 - 37.3) Pulse Rate (adult) 71 bpm (60 - 100) Respiratory Rate 18 breaths/min (10 - 20) O2 Sat by Pulse Oximetry 95 % (90 - 100) Blood Pressure 120/78 mm Hg Height 5 ft 2 in Weight 125 lb Body Mass Index 22.0 kg/m^2 Results Test Source Date Result Interp. Ref. Range Comments Activated Partial Thromboplast Time January 04, 2012 11:20pm 40.0 SEC H 24-36 Alanine Aminotransferase (ALT/SGPT) May 16, 2013 6:29pm 181 U/L H 9- 52 Albumin May 16, 2013 6:29pm 4.2 G/DL N 3.5-5.0 Albumin/Globulin Ratio May 16, 2013 6:29pm 1.4 RATIO N 1.1-2.2 Aldosterone July 29, 2011 10:25am Ref lab rpt scanned - --- 07/31/11 1309 ---ALDOSB previously reported as: SENT OUT Alkaline Phosphatase May 16, 2013 6:29pm 83 U/L N 38-126 Amylase Level May 16, 2013 6:29pm 140 U/L H 30-110 Anion Gap May 16, 2013 6:29pm 11 MEQ/L N 5-15 Aspartate Amino Transf (AST/SGOT) May 16, 2013 6:29pm 165 U/L H 14-36 BUN/Creatinine Ratio May 16, 2013 6:29pm 15 RATIO N 6-26 Band Neutrophils # January 27, 2011 5:00pm 0.5 T/MM3 - Band Neutrophils % January 27, 2011 5:00pm 3.0 % N 0-6 Basophils # (Auto) May 16, 2013 6:29pm 0.1 T/MM3 N 0-0.2 Basophils # (Manual) December 19, 2010 9:09am 0.4 T/MM3 H 0-0.2 Basophils % (Manual) December 19, 2010 9:09am Not Performed 0-2 Basophils (%) (Auto) May 16, 2013 6:29pm 0.8 % N 0-2 Blood Urea Nitrogen May 16, 2013 6:29pm 12.0 MG/DL N 7-17 CSF Color February 05, 2011 3:30pm Colorless - CSF Glucose February 05, 2011 3:30pm 60 MG/DL N 40-70 CSF RBC February 05, 2011 3:30pm 0 /MM3 N 0-0 CSF Total Nucleated Cell Count February 05, 2011 3:30pm 1 /MM3 N 0-5 CSF Total Protein February 05, 2011 3:30pm 25 MG/DL N 12-60 CSF Turbidity February 05, 2011 3:30pm Clear - Calcium Level May 16, 2013 6:29pm 9.6 MG/DL N 8.4-10.2 Calculated Osmolality May 16, 2013 6:29pm 274 MOSM/KG N 261-280 Carbon Dioxide Level May 16, 2013 6:29pm 23 MEQ/L N 22-30 Chloride Level May 16, 2013 6:29pm 109 MEQ/L H 98-107 Cholesterol Level December 19, 2010 9:09am 166 MG/DL N 132-199 Cholesterol/HDL Ratio December 19, 2010 9:09am 6.6 RATIO H 0-4.0 Conjugated Bilirubin January 04, 2012 11:20pm 0.00 MG/DL N 0.00-0.30 Creatinine May 16, 2013 6:29pm 0.8 MG/DL N 0.7-1.2 D-Dimer January 04, 2012 11:20pm < 150 NG/ML 0-230 <224 NG/ML= PRESUMPTIVE NEGATIVE FOR PE OR DVT>224 NG/ML=ADDITIONAL EVALUATION FOR PE OR DVT RECOMMENDED Eosinophils # (Auto) May 16, 2013 6:29pm 0.3 T/MM3 N 0-0.5 Eosinophils # (Manual) January 04, 2012 11:20pm 0.1 T/MM3 N 0-0.5 Eosinophils % (Manual) January 04, 2012 11:20pm 1.0 % N 0-4 Eosinophils (%) (Auto) May 16, 2013 6:29pm 2.9 % N 0-4 Erythrocyte Sedimentation Rate March 07, 2011 12:05pm 50 MM/HR H 0- 20 Folate December 19, 2010 9:09am 3.0 NG/ML N 2.76-20 NORMAL ADULT RANGE: 2.76->20 ng/mL Free Thyroxine May 12, 2011 10:00am 0.68 NG/DL L 0.78-2.19 Globulin May 16, 2013 6:29pm 3.1 G/DL N 2.4-3.6 Glucose Level May 16, 2013 6:29pm 76 MG/DL N 65-110 Helicobacter pylori Antibodies January 01, 2011 4:25pm Negative - Hematocrit May 16, 2013 6:29pm 39.6 % N 36-46 Hemoglobin May 16, 2013 6:29pm 13.7 GM/DL N 12-16 Hemoglobin A1c July 07, 2011 9:00am 5.0 % L 6-7 <6.0 NON-DIABETIC RANGE6.0-7.0 ADA THERAPEUTIC RANGE >7.0 ACTION SUGGESTED Human Chorionic Gonadotropin, Qual June 22, 2008 7:40am Negative - LDL Cholesterol, Calculated December 19, 2010 9:09am 121.4 N 66-159 Lipase May 16, 2013 6:29pm 157 U/L N 23-300 Lymphocytes # (Auto) May 16, 2013 6:29pm 2.7 T/MM3 N 1-4.8 Lymphocytes # (Manual) January 04, 2012 11:20pm 3.6 T/MM3 N 1-4.8 Lymphocytes % (Manual) January 04, 2012 11:20pm 40.0 % N 23-45 Lymphocytes (%) (Auto) May 16, 2013 6:29pm 25.8 % N 23-45 Magnesium Level January 04, 2012 11:20pm 1.8 MG/DL N 1.6-2.3 Mean Corpuscular Hemoglobin May 16, 2013 6:29pm 34.0 UUG N 26-34 Mean Corpuscular Hemoglobin Concent May 16, 2013 6:29pm 34.6 GM/DL N 31-37 Mean Corpuscular Volume May 16, 2013 6:29pm 98.3 UM3 N 80-100 Mean Platelet Volume May 16, 2013 6:29pm 10.1 UM3 N 9.4-12.4 Monocytes # (Auto) May 16, 2013 6:29pm 1.0 T/MM3 H 0-0.8 Monocytes # (Manual) January 04, 2012 11:20pm 0.8 T/MM3 N 0-0.8 Monocytes % (Manual) January 04, 2012 11:20pm 9.0 % N 0-9.0 Monocytes (%) (Auto) May 16, 2013 6:29pm 9.1 % H 0-9.0 Neutrophils # (Auto) May 16, 2013 6:29pm 6.5 T/MM3 N 1.8-7.7 Neutrophils # (Manual) January 04, 2012 11:20pm 4.5 T/MM3 N 1.8-7.7 Neutrophils % (Manual) January 04, 2012 11:20pm 50.0 % N 33-66 Neutrophils (%) (Auto) May 16, 2013 6:29pm 61.0 % N 33-66 Ova and Parasites (LAB) January 03, 2011 1:53pm Ref lab rpt scanned - --- 01/17/1158 ---OAP previously reported as: SENT OUT Platelet Count May 16, 2013 6:29pm 340 T/MM3 N 130-400 Potassium Level May 16, 2013 6:29pm 4.5 MEQ/L N 3.6-5 Prealbumin December 19, 2010 1:01pm 16.4 MG/DL L 17.6-36.0 COMMENT blood in lab Prothromb Time International Ratio January 04, 2012 11:20pm 1.25 H 0.86- 1.10 THERAPUTIC RANGE=2.00-3.00 FOR ANTI-THROMBOSIS THERAPUTIC RANGE=2.50- 3.50 FOR IMPLANTED VALVE RDW Standard Deviation May 16, 2013 6:29pm 48.9 FL N 36.9-50.2 Reactive Lymphocytes June 11, 2008 1:15pm 4.0 % H 0-0 Red Blood Count May 16, 2013 6:29pm 4.03 M/MM3 N 4.00-5.20 Renin July 29, 2011 10:25am Ref lab rpt scanned - --- 07/31/11 1309 - --AVELINA previously reported as: SEND OUT SS-A/Ro Antibody April 24, 2011 3:10pm Ref lab rpt scanned - --- 04/29/11937 ---ANTISSA previously reported as: SENT OUT SS-B/La Antibody April 24, 2011 3:10pm Ref lab rpt scanned - --- 04/29/11937 ---ANTISSB previously reported as: SENT OUT Sodium Level May 16, 2013 6:29pm 143 MEQ/L N 134-144 Thyroid Stimulating Hormone (TSH) January 04, 2012 11:20pm 5.93 MIU/L H 0.47-4.68 Total Bilirubin May 16, 2013 6:29pm 0.30 MG/DL N 0.20-1.30 Total Protein May 16, 2013 6:29pm 7.3 G/DL N 6.3-8.2 Triglycerides Level December 19, 2010 9:09am 98 MG/DL N 35-135 Troponin I January 04, 2012 11:20pm < 0.012 ng/ml 0-0.12 Unconjugated Bilirubin January 04, 2012 11:20pm 0.30 MG/DL N 0.00-1.10 Urine Amphetamines Screen January 12, 2012 4:29pm Negative NG/ML - Urine Bacteria May 16, 2013 6:29pm None seen - Has specimen been collected/obtained? Y Urine Barbiturates Screen January 12, 2012 4:29pm Negative NG/ML - Urine Benzodiazepines Screen January 12, 2012 4:29pm Negative NG/ML - Urine Bilirubin May 16, 2013 6:29pm Negative - Has specimen been collected/obtained? Y Urine Blood May 16, 2013 6:29pm Trace-lysed H - Has specimen been collected/obtained? Y Urine Cocaine Screen January 12, 2012 4:29pm Negative NG/ML - Urine Collection Type May 16, 2013 6:29pm Cleancatch-midstream - Has specimen been collected/obtained? Y Urine Color May 16, 2013 6:29pm Yellow - Has specimen been collected/obtained? Y Urine Culture Indicated May 16, 2013 6:29pm Cult reflexed &setup - Has specimen been collected/obtained? Y Urine Drug Screen Confirmation January 12, 2012 5:26pm Sent out - Urine Glucose (UA) May 16, 2013 6:29pm Negative - Has specimen been collected/obtained? Y Urine Ketones May 16, 2013 6:29pm Negative - Has specimen been collected/obtained? Y Urine Leukocyte Esterase May 16, 2013 6:29pm Negative - Has specimen been collected/obtained? Y Urine Mucus February 27, 2013 12:00pm Present - Has specimen been collected/obtained? Y Urine Nitrite May 16, 2013 6:29pm Negative - Has specimen been collected/obtained? Y Urine Opiates Screen January 12, 2012 4:29pm Negative NG/ML - Urine Protein May 16, 2013 6:29pm Negative - Has specimen been collected/obtained? Y Urine RBC May 16, 2013 6:29pm 5-10 /HPF H - Has specimen been collected/obtained? Y Urine Specific [place] May 16, 2013 6:29pm <=1.005 L - Has specimen been collected/obtained? Y Urine Squamous Epithelial Cells May 16, 2013 6:29pm 5-10 - Has specimen been collected/obtained? Y Urine Tricyclic Antidepressants January 12, 2012 4:29pm Negative NG/ML - Urine Turbidity May 16, 2013 6:29pm Clear - Has specimen been collected/obtained? Y Urine Urobilinogen May 16, 2013 6:29pm 0.2 EU/DL - Has specimen been collected/obtained? Y Urine WBC May 16, 2013 6:29pm 0-1 /HPF - Has specimen been collected/obtained? Y Urine pH May 16, 2013 6:29pm 6.0 - Has specimen been collected/ obtained? Y VLDL Cholesterol December 19, 2010 9:09am 19.6 MG/DL N 0-28 Vitamin B12 Level December 19, 2010 9:09am 327 PG/ML N 239-931 White Blood Count May 16, 2013 6:29pm 10.6 T/MM3 N 4.5-11.0 Chemistry Specimen Hemolysis May 16, 2013 6:29pm < 15 0-25 0-25: No Hemolysis.26-70: Slight Hemolysis - can falsely elevate K and Urine Protein. 71-285: Moderate Hemolysis - can falsely elevate K, Troponin I, CA 19-9, PTH, CSF GLucose, and Urine Protein, and can falsely decrease Phenytoin. 286-999: Gross Hemolysis - can falsely elevate K, Troponin I, CA 19-9, PTH, CSF Glucose, and Urine Protine, and can falsely decrease Phenytoin. Recommend specimen recollection. Lab Scanned Report May 25, 2013 12:34pm LAB RESULTS - SCANNED [id number] - HDL Cholesterol Direct December 19, 2010 9:09am 25 MG/DL L 40-60 Atypical/Reactive Lymphocytes June 11, 2008 1:15pm 0.5 T/MM3 H 0-0 Urine Methadone Screen January 12, 2012 4:29pm Negative NG/ML - HIV (1&2) Antibody Rapid December 19, 2010 9:09am Negative - Urine Cannabinoids Screen January 12, 2012 4:29pm Positive NG/ML - Anti-Nuclear Antibody (LAB) March 07, 2011 12:05pm Ref lab rpt scanned - --- 03/12/11 0843 ---MONIQUE previously reported as: SENT OUT Turbidity May 16, 2013 6:29pm < 20 0-20 Glomerular Filtration Rate Calc May 16, 2013 6:29pm 81 - Immature Granulocyte # (Auto) May 16, 2013 6:29pm 0.04 T/MM3 H 0.00- 0.03 Immature Granulocyte % (Auto) May 16, 2013 6:29pm 0.4 % N 0.0-0.5 Icterus Index May 16, 2013 6:29pm < 2 0-7 QT-Fpw-Q-Type Natriuretic Peptide January 04, 2012 11:20pm 98 PG/ML N 0- 175 Rule in cut points: <50 years old=450; 50-75 years old=900; >75 years old=1800; When utilizing ProBNP rule-in cut points, adjustment for impaired renal function is typically not required. Urine Microscopic Not Indicated July 29, 2011 10:25am Not indicated - Gram Stain Cerebral Spinal Fluid February 05, 2011 3:30pm Stool Culture Stool January 03, 2011 1:53pm Urine Culture Urine, Clean Catch-Midstream May 16, 2013 6:45pm Diphtheroid Bacillus Helicobacter pylori Rapid Urease Gastric Biopsy January 21, 2011 8:15am Procedures No known history of procedures. Encounters Encounter Location Date/Time Departed Emergency Room [facility] 10/27/13 9:37am Recent Diagnosis
--- OUTSIDE RECORDS SUMMARY | 2016-05-05 10:20 | XMS REPORT | Continuity of Care Document ---
Author Author [facility] Organization [facility] Address Unknown Phone Unavailable Support Name Relationship Address Phone SWATI HOWARD MD Caregiver [facility] [address] [place] [address] Unavailable SAMANTHA GARCIA MD Caregiver [facility] [address] [place], [place] [phone] KRISHNA ROSITA Next Of Kin [address] [place], [place] [id number] CP Insurance Providers Payer Name Policy Number Subscriber Name Relationship Workers Compensation Donna Nuno 19 Self Problems Medical Problems Problem Onset Date Status Gastroenteritis Unknown Active Elevated liver enzymes Unknown Active Peripheral edema Unknown Active Headache Unknown Active Headache Unknown Active Shoulder strain Unknown Active Medications Medication Dose Route Sig [...] Bupropion HCl 1 PO DAILY 10/27/13 Active [Geodon] 02/26/14 Active [Strattera] 02/26/14 Active Social History Social History Problem Response Recorded Date/Time Chewing Tobacco Status No 05/16/2013 5:20pm Hx Substance Use N HX OF 02/26/2014 10:36pm Hx Alcohol Use No 02/26/2014 10:36pm Query Response Start Date Stop Date Smoking Status Current every day smoker Hospital Discharge Instructions No hospital discharge instructions. Plan of Care No plan of care. Functional Status Query Response Date Recorded Physical Hygiene Self February 26, 2014 10:36pm Disabilities None February 26, 2014 10:36pm Devices Used Glasses February 26, 2014 10:36pm Dressing Self February 26, 2014 10:36pm Ambulation Self February 26, 2014 10:36pm Diet Self February 26, 2014 10:36pm Mental Status Alert Oriented February 26, 2014 10:36pm Disabilities None February 26, 2014 10:36pm Devices Used Glasses February 26, 2014 10:36pm Physical Hygiene Self February 26, 2014 10:36pm Dressing Self February 26, 2014 10:36pm Ambulation Self February 26, 2014 10:36pm Diet Self February 26, 2014 10:36pm Allergies, Adverse Reactions, Alerts Allergen Type Severity Reaction Status Last Updated Penicillin Allergy Unknown RASH Active 02/26/14 Sulfa (Sulfonamide Antibiotics) Allergy Unknown Active 02/26/14 Sulfamethoxazole Allergy Unknown Active 02/26/14 Trimethoprim Allergy Unknown Active 02/26/14 Gluten Adverse Reaction Intermediate SICK/ VOMITING Active 10/27/13 Immunizations Name Given Type Hx Influenza Vaccination Yes Historical Hx Pneumococcal Vaccination No Historical Hx Tetanus, Diptheria, Pertussis N/A SKIN INTACT Historical Hx Influenza Vaccination Yes Historical Hx Tetanus, Diptheria, Pertussis N/A SKIN INTACT Historical Vital Signs Acute Vital Signs Vital Response Date/Time Temperature (Fahrenheit) 97.1 deg F (96.8 - 99.1) Temperature (Calculated Celsius) 36.57831 degrees C (36.0 - 37.3) Pulse Rate (adult) 88 bpm (60 - 100) Respiratory Rate 16 breaths/min (10 - 20) O2 Sat by Pulse Oximetry 99 % (90 - 100) Blood Pressure 155/82 mm Hg Height 5 ft 3 in Weight 133 lb Body Mass Index 23.0 kg/m^2 Results Test Source Date Result Interp. [...] 1:53pm Ref lab rpt scanned - --- 01/17/11 0958 ---OAP previously reported as: SENT OUT Platelet [...] 3:10pm Ref lab rpt scanned - --- 04/29/1138 ---ANTISSA previously reported as: SENT OUT SS-B/La [...] Has specimen been collected/obtained? Y Urine Specific [place] May 16, 2013 6:29pm <=1.005 L - [...] 25, 2013 12:34pm LAB RESULTS - SCANNED [id number] - HDL Cholesterol Direct December 19, 2010 [...] May 16, 2013 6:29pm < 2 0-7 SW-Trq-T-Type Natriuretic Peptide January 04, 2012 11:20pm 98 [...] Encounters Encounter Location Date/Time Departed Emergency Room [facility] 02/26/14 10:36pm Recent Diagnosis
--- NOTE | 2016-05-05 10:45 | ERPDOC ---
Departure Disposition Decision Date: May 05, 2016 Disposition Decision Time: 12:52 Disposition: 01 DISCHARGED HOME, SELF-CARE Impression Impression Impression: Primary Impression: Gastroenteritis Severity: Moderate Condition: Stable Seen By: Physician only Referrals: GIANNA RODRIGUES DO (Family) Follow-up as scheduled tomorrow Patient Instructions: Gastroenteritis (ED) Problems/Meds/Labs Reviewed?: Yes Medications reviewed and manag: Yes Follow up care ordered?: Yes Mental Status: Alert, Oriented HPI - Abdominal Pain General Chief Complaint: Nausea,Vomiting,Diarrhea Stated Complaint: DEHYDRATION, VOMITING,FEVER,CHEST HURTS Time Seen by Provider: 10:45 Source: patient History/Exam Limitations: no limitations HPI - Abdominal Pain Initial Comments Patient is a 40-year-old female presents emergency room for evaluation of nausea and vomiting for the last week, chest pain for the last 2 days. Patient states she's had whole-body pain for several months now, cannot get her primary medical physician to do anything about it. Patient did call the office today and was told they did not have any appointments for her so patient decided to present to the ER for evaluation. Complaining of 10/10 pain "all over" Occurred At: home Onset: Gradual Duration: 1 week Allergies: Coded Allergies: Penicillins (Verified Allergy, Unknown, RASH, 05/08/16) Sulfa (Sulfonamide Antibiotics) (Verified Allergy, Unknown, 05/08/16) sulfamethoxazole (Verified Allergy, Unknown, 05/08/16) trimethoprim (Verified Allergy, Unknown, 05/08/16) gluten (Verified Adverse Reaction, Intermediate, SICK/ VOMITING, 05/08/16) Past History Patient Surgical History Open reduction and internal fixation of right ankle in May 2015 Past Medical History Metabolic: hypertension Respiratory: pneumonia GI: GERD, gallbladder disease, ulcers Female: endometriosis Neurological: fibromyalgia, headaches Musculoskeletal: osteoarthritis Psychological: bipolar, depression, drug abuse, psychosis, schizophrenia Surgical History General: EGD, appendix, colonoscopy, exploratory laparotomy, gallbladder Reproductive/: D&C, hysterectomy Joint: other Family History Family PMH: FOUND: cancer, diabetes, hypertension Vaccines Hx Influenza Vaccination: Yes (NOV 2015) Hx Pneumococcal Vaccination: No Social History Does patient use chewing tobac: No # of Packs/Tins per Day: 1 # of Years: 20 Substance Use Type: former substance user Sexuality: male partner Review of Systems Constitutional Constitutional: appetite decrease, dizziness, weakness, DENIES: chills, fever Eyes Vision: DENIES: double vision, loss of visual [place] ENMT Sinuses: DENIES: congestion, rhinorrhea Mouth/Throat: DENIES: scratchy throat, sore throat Cardiovascular Cardiac: DENIES: chest pain, dyspnea on exertion Pulmonary Respiratory: DENIES: cough, dyspnea, sputum, tachypnea GI Upper Abdomen: nausea, pain, vomiting Lower Abdomen: pain, DENIES: constipation, diarrhea General: DENIES: frequency, urgency Musculoskeletal General: pain, DENIES: cramps, weakness Integumentary Skin: DENIES: color change, itching, rash Endocrine Endocrine: DENIES: heat/cold intolerance Hematologic/Lymphatic Hematologic/Lymphatic: DENIES: anemia Physical Exam General General Nourishment: well nourished, well developed General Body Habitus: well groomed Vitals and Pain Weight: Kilograms: 55.200 Height (feet): 5 Height (inches): 3.00 Triage Pain Scale: RN VS reviewed by Provider: Yes Eyes (brief) Eyes Brief: found: EOMI ENMT (brief) ENMT Brief: FOUND: mucosa moist, normal dentition, NOT FOUND: nasal erythema, pharnyx erythema, tonsillar deviation Neck (brief) Neck: NOT FOUND: adenopathy, spasm, tenderness Respiratory (brief) Respiratory: FOUND: clear all [place], equal bilaterally, NOT FOUND: rales, wheezes Cardiovascular (brief) Cardiac: FOUND: regular rate, regular rhythm Capillary Refill: <2 sec Abdomen (brief) Abdominal Brief: FOUND: bowel normo active x4, soft, NOT FOUND: distended, tender Lymphatic (brief) Lymphatic Brief: NOT FOUND: adenopathy Musculoskeletal (brief) Musculoskeletal Brief: NOT FOUND: spasm, tenderness Integumentary (brief) Integumentary Brief: FOUND: dry, pink, warm Neurologic (brief) Neurological Brief: FOUND: CN w/o gross def to obs, motor-no gross deficits, sensory-no gross deficits Psychiatric (brief) Psychiatric Brief: FOUND: alert, oriented Differential Diagnoses Considering: Achalasia, Biliary Colic, Bowel Obstruction, Concussion, Dehydration, Diverticulitis, Food Poisoning, Gastroenteritis, Hepatitis, Hyponatremia, Hypokalemia, Hypoglycemia, Pancreatitis, Pneumonia, Pyelonephritis , Rotavirus, UTI, Sigmoid Volvulus, Cecal Volvulus Progress Results/Orders Orders Procedure Category Date Status Time EKG EKG 05/05/16 Taken 10:15 Case Management CONS 05/05/16 Transmitted Consult 10:24 Iv Lock (Ed Only) EDM 05/05/16 Transmitted 10:52 Cbc W/Auto LAB 05/05/16 Complete Diff-Reflex Manual 10:52 Cmp - Comprehensive LAB 05/05/16 Complete Metabolic 10:52 Lipase LAB 05/05/16 Complete 10:52 Ua, Dip Wreflex LAB 05/05/16 Complete Microsc & Lead Bi Developer 10:52 Normal Saline (Normal PHA 05/05/16 Complete Saline Iv) 11:00 Lorazepam (Ativan) PHA 05/05/16 Complete 11:00 G.I. Cocktail PHA 05/05/16 Complete (/Maalox/Lidocaine 12:45 Lab Results Laboratory Tests Test 05/05/16 11:14 05/05/16 11:55 White Blood Count 8.2T/MM3 Red Blood Count 5.14M/MM3 Hemoglobin 15.2GM/DL Hematocrit 43.8% Mean Corpuscular Volume 85.2UM3 Mean Corpuscular Hemoglobin 29.6UUG Mean Corpuscular Hemoglobin Concent 34.7GM/DL RDW Standard Deviation 49.7FL Platelet Count 356T/MM3 Mean Platelet Volume 10.2UM3 Immature Granulocyte % (Auto) 0.1% Neutrophils (%) (Auto) 52.1% Lymphocytes (%) (Auto) 38.2% Monocytes (%) (Auto) 7.9% Eosinophils (%) (Auto) 1.1% Basophils (%) (Auto) 0.6% Absolute Immature Granulocyte (auto 0.01T/MM3 Absolute Neutrophils (auto) 4.3T/MM3 Absolute Lymphocytes (auto) 3.1T/MM3 Absolute Monocytes (auto) 0.6T/MM3 Absolute Eosinophils (auto) 0.1T/MM3 Absolute Basophils (auto) 0.1T/MM3 Turbidity < 20 Sodium Level 141MEQ/L Potassium Level 3.7MEQ/L Chloride Level 105MEQ/L Carbon Dioxide Level 27MEQ/L Anion Gap 9MEQ/L Blood Urea Nitrogen 7.0MG/DL Creatinine 0.9MG/DL Glomerular Filtration Rate Calc 70 BUN/Creatinine Ratio 8RATIO Glucose Level 91MG/DL Calculated Osmolality 269MOSM/KG Calcium Level 10.1MG/DL Total Bilirubin 0.60MG/DL Icterus Index < 2 Aspartate Amino Transf (AST/SGOT) 15U/L Alanine Aminotransferase (ALT/SGPT) 24U/L Alkaline Phosphatase 99U/L Total Protein 7.7G/DL Albumin 4.2G/DL Globulin 3.5G/DL Albumin/Globulin Ratio 1.2RATIO Lipase 63U/L Chemistry Specimen Hemolysis < 15 Urine Collection Type Voided-not cc-midstr Urine Color Yellow Urine Turbidity Cloudy Urine pH 6.0 Urine Specific [place] 1.010 Urine Protein Negative Urine Glucose (UA) Negative Urine Ketones Negative Urine Blood Negative Urine Nitrite Negative Urine Bilirubin Negative Urine Urobilinogen 0.2EU/DL Urine Leukocyte Esterase Negative Urinalysis Comment Microscopic not ind. Medications Current ED Medications Sodium Chloride (Normal Saline IV) 1,000 ml @ 999 mls/hr Q1H1M ONCE IV Last administered on 05/05/16 11:12; Start 05/05/16 at 11:00; Stop 05/05/16 at 12:00 ; Status DC Lorazepam (Ativan) 1 mg O ONCE IV Last administered on 05/05/16 11:12; Start 05/05/16 at 11:00; Stop 05/05/16 at 11:01; Status DC Pharmacy Profile Note (/Maalox/ Lidocaine Soln) 30 ml O ONCE PO Last administered on 05/05/16 12:53; Start 05/05/16 at 12:45; Stop 05/05/16 at 12:46 ; Status DC Progress Progress Agents EKG and laboratories are all noncontributory, patient needs to follow-up with her primary care physician EKG EKG : Rate: 60-100 Rhythm: sinus [place]: normal QRS: normal Intervals: normal ST/T: non-specific changes Interpreted by: signing physician BEULAH GATES MD May 05, 2016 10:45
[2016-05-05] MEDS ORDERED: NORMAL SALINE 1,000 ML IV ONE (11:00)
[2016-05-05] MEDS ORDERED: LORAZEPAM 2 MG/ML INJECTION IV ONE (11:00)
[2016-05-05 11:24] LABS: BASOPHILS # (AUTO) 0.1 T/MM3 (0-0.2); BASOPHILS % (AUTO) 0.6 % (0-2); EOSINOPHILS # (AUTO) 0.1 T/MM3 (0-0.5); EOSINOPHILS % (AUTO) 1.1 % (0-4); HCT - HEMATOCRIT 43.8 % (36-46); HGB - HEMOGLOBIN 15.2 GM/DL (12-16); IMMATURE GRANULOCYTE # (AUTO) 0.01 T/MM3 (0.00-0.03); IMMATURE GRANULOCYTE % (AUTO) 0.1 % (0.0-0.5); LYMPHOCYTES # (AUTO) 3.1 T/MM3 (1-4.8); LYMPHOCYTES % (AUTO) 38.2 % (23-45); MEAN CORPUSCULAR HGB 29.6 UUG (26-34); MEAN CORPUSCULAR HGB CONC(MCHC 34.7 GM/DL (31-37); MEAN CORPUSCULAR VOLUME 85.2 UM3 (80-100); MEAN PLATELET VOLUME 10.2 UM3 (9.4-12.4); MONOCYTES # (AUTO) 0.6 T/MM3 (0-0.8); MONOCYTES % (AUTO) 7.9 % (0-9.0); NEUTROPHILS #(AUTO)-ABSOLUTE 4.3 T/MM3 (1.8-7.7); NEUTROPHILS % (AUTO) 52.1 % (33-66); RED BLOOD COUNT 5.14 M/MM3 (4.00-5.20); WBC - WHITE BLOOD COUNT 8.2 T/MM3 (4.5-11.0)
--- NOTE | 2016-05-05 11:30 | NUR ---
CM THIS WORKER MET WITH PT ON THIS DATE. ALSO PRESENT WAS PT'S MOTHER. THIS WORKER INTRODUCED SELF AND ROLE OF CASE MANAGEMENT. PT REPORTED THAT SHE HAS BEEN WITHOUT INSURANCE AND IS UNABLE TO AFFORD HER MEDICATIONS. THIS WORKER OFFERED ASSISTANCE TO PT ON THIS DATE. [facility] THIS WORKER SPOKE WITH NURSE, JAYCE AND MEDICATION ASSISTANCE LOG CHIPPER OPERATOR PAUL. PT HAS APPOINTMENT WITH [facility] ON 05/06/16 AND THEY WILL ASSIST HER IN OBTAINING SAMPLES OF HER MEDICATIONS AND TO GET HER ENROLLED IN THE MEDICATION ASSISTANCE PROGRAM. PT REPORTED THAT SHE HAD A GOOD SUPPORT SYSTEM FROM HER MOTHER. HER MOTHER OWNS THE APARTMENT THAT SHE LIVES IN AND HAS FINANCIAL SUPPORT IF NEEDED. PT REPORTED THAT SHE IS ALSO RECEIVING MENTAL HEALTH SERVICES THROUGH [employer] EVEN THOUGH SHE DOESN'T HAVE INSURANCE. PT REPORTED THAT SHE HAS [facility]" [facility] THIS WORKER PROVIDED PT WITH LIST OF RESOURCES IN THE COMMUNITY ALONG WITH THIS WORKER'S CONTACT INFORMATION. PT THANKFUL FOR THIS WORKER'S ASSISTANCE. THIS WORKER ENCOURAGED PT TO CONTAC THIS WORKER WITH NEEDS. Addendum: 05/06/16 at 1040 by TRUONG LUJAN Amended: Links added.
[2016-05-05 11:33] LABS: ALBUMIN 4.2 G/DL (3.5-5.0); ALBUMIN/GLOBULIN RATIO 1.2 RATIO (1.1-2.2); ALKALINE PHOSPHATASE 99 U/L (38-126); ALT (SGPT) 24 U/L (9-52); ANION GAP 9 MEQ/L (5-15); AST (SGOT) 15 U/L (14-36); BUN/CREATININE RATIO 8 RATIO (6-26); CALCIUM 10.1 MG/DL (8.4-10.2); CHLORIDE 105 MEQ/L (98-107); CO2 - CARBON DIOXIDE 27 MEQ/L (22-30); CREATININE 0.9 MG/DL (0.7-1.2); GLOMERULAR FILTRATION RATE 70; GLUCOSE 91 MG/DL (65-110); LIPASE 63 U/L (23-300); POTASSIUM 3.7 MEQ/L (3.6-5); SODIUM 141 MEQ/L (134-144); TOTAL PROTEIN 7.7 G/DL (6.3-8.2)
[2016-05-05 12:02] LABS: BLOOD, URINE NEGATIVE (NEGATIVE); COLOR,URINE YELLOW (YELLOW); LEUKOCYTE ESTERASE ,URINE NEGATIVE (NEGATIVE); NITRITE,URINE NEGATIVE (NEGATIVE); UROBILINOGEN,URINE 0.2 EU/DL (NORMAL)
[2016-05-05] MEDS ORDERED: G.I. COCKTAIL 30ml PO ONE (12:45)
--- OUTSIDE RECORDS SUMMARY | 2016-05-05 12:52 | XMS REPORT | Continuity of Care Document ---
Author Author [facility] Organization [facility] Address Unknown Phone Unavailable Support Name Relationship Address Phone BKLUIS FOWLER Caregiver [facility] [address] [place], [place] [phone] SAMANTHA GARCIA MD Caregiver [facility] [address] [place] [address] FLORIDALMA SCOTT Next Of Kin [address] [place] [address] CP Insurance Providers Payer Name Policy Number [...] F (96.8 - 99.1) Temperature (Calculated Celsius) 36.69720 degrees C (36.0 - 37.3) Pulse Rate [...] Has specimen been collected/obtained? Y Urine Specific [place] May 16, 2013 6:29pm <=1.005 L - [...] 25, 2013 12:34pm LAB RESULTS - SCANNED [id number] - HDL Cholesterol Direct December 19, 2010 [...] May 16, 2013 6:29pm < 2 0-7 LU-Yto-R-Type Natriuretic Peptide January 04, 2012 11:20pm 98 [...] Encounters Encounter Location Date/Time Departed Emergency Room [facility] 10/27/13 9:37am Recent Diagnosis
--- OUTSIDE RECORDS SUMMARY | 2016-05-05 12:52 | XMS REPORT | Continuity of Care Document ---
Author Author [facility] Organization [facility] Address Unknown Phone Unavailable Support Name Relationship Address Phone SWATI HOWARD MD Caregiver [facility] [address] [place] [address] Unavailable SAMANTHA GARCIA MD Caregiver [facility] [address] [place], [place] [phone] KRISHNA ROSITA Next Of Kin [address] [place], [place] [phone] CP Insurance Providers Payer Name Policy Number [...] F (96.8 - 99.1) Temperature (Calculated Celsius) 36.65106 degrees C (36.0 - 37.3) Pulse Rate [...] Has specimen been collected/obtained? Y Urine Specific [place] May 16, 2013 6:29pm <=1.005 L - [...] 25, 2013 12:34pm LAB RESULTS - SCANNED [id number] - HDL Cholesterol Direct December 19, 2010 [...] May 16, 2013 6:29pm < 2 0-7 TE-Vav-Q-Type Natriuretic Peptide January 04, 2012 11:20pm 98 [...] Encounters Encounter Location Date/Time Departed Emergency Room [facility] 02/26/14 10:36pm Recent Diagnosis
[2016-05-05] MEDS ORDERED: ONDA4TAB7 PO (12:54)
[2016-05-05 13:20] VITALS: BP 139/83; PULSE 96; RESP 16; O2SAT 95
--- NOTE | 2016-05-05 13:20 | NUR ---
DEPART VERBAL AND WRITTEN DISCHARGE INSTRUCTIONS GIVEN AND UNDERSTOOD. CONDITION STABLE. RELEASED AMBULATORY
[2016-05-08] MEDS ORDERED: NO ROUTINE MEDS (18:30)
== END 2016-05-05 13:20 | disposition home or self-care (01) ==
LOC: ED 10:05
DX: K52.9 Noninfective gastroenteritis and colitis, unspecified (principal); R07.9 Chest pain, unspecified
CPT/HCPCS: 80053; 81003; 83690; 85025; 93005

== ENCOUNTER 2016-05-31 13:49 | Emergency (ER) | payer SELFPAY ==
[~2016-05-31] VITALS: Ht 160 cm; Wt 53.9 kg
[~2016-05-31 13:49] MED LIST changes: -LEVO25TA9 PO; -MELO-267 PO; +NO ROUTINE MEDS; -OLAN10TA21 PO; -OMEP40CA52 PO; -PREG200C PO; -ROPI2TAB6 PO; -TIZA4TAB4 PO; -TRAM50TA4 PO; -VENL75CA60 PO
--- OUTSIDE RECORDS SUMMARY | 2016-05-31 13:58 | XMS REPORT | Continuity of Care Document ---
Author Author [facility] Organization [facility] Address Unknown Phone Unavailable Support Name Relationship Address Phone BKLUIS FOWLER Caregiver [facility] [address] [place], [place] [phone] SAMANTHA GARCIA MD Caregiver [facility] [address] [place] [address] FLORIDALMA SCOTT Next Of Kin [address] [place] [address] CP Insurance Providers Payer Name Policy Number [...] F (96.8 - 99.1) Temperature (Calculated Celsius) 36.51011 degrees C (36.0 - 37.3) Pulse Rate [...] Has specimen been collected/obtained? Y Urine Specific [place] May 16, 2013 6:29pm <=1.005 L - [...] 25, 2013 12:34pm LAB RESULTS - SCANNED [id number] - HDL Cholesterol Direct December 19, 2010 [...] May 16, 2013 6:29pm < 2 0-7 MF-Bsz-G-Type Natriuretic Peptide January 04, 2012 11:20pm 98 [...] Encounters Encounter Location Date/Time Departed Emergency Room [facility] 10/27/13 9:37am Recent Diagnosis
--- OUTSIDE RECORDS SUMMARY | 2016-05-31 13:58 | XMS REPORT | Continuity of Care Document ---
Author Author [facility] Organization [facility] Address Unknown Phone Unavailable Support Name Relationship Address Phone SWATI HOWARD MD Caregiver [facility] [address] [place] [address] Unavailable SAMANTHA GARCIA MD Caregiver [facility] [address] [place], [place] [phone] KRISHNA ROSITA Next Of Kin [address] [place], [place] [phone] CP Insurance Providers Payer Name Policy Number [...] F (96.8 - 99.1) Temperature (Calculated Celsius) 36.48609 degrees C (36.0 - 37.3) Pulse Rate [...] Has specimen been collected/obtained? Y Urine Specific [place] May 16, 2013 6:29pm <=1.005 L - [...] 25, 2013 12:34pm LAB RESULTS - SCANNED [id number] - HDL Cholesterol Direct December 19, 2010 [...] May 16, 2013 6:29pm < 2 0-7 VS-Bly-B-Type Natriuretic Peptide January 04, 2012 11:20pm 98 [...] Encounters Encounter Location Date/Time Departed Emergency [facility] 02/26/14 10:36pm Recent Diagnosis
--- OUTSIDE RECORDS SUMMARY | 2016-05-31 13:59 | XMS REPORT | Continuity of Care Document ---
Author Author [facility] Organization [facility] Address Unknown Phone Unavailable Support Name Relationship Address Phone JULY, STEPHEN Hatch DO Caregiver [address] [place] [address] Unavailable GIANNA RODRIGUES DO Caregiver [address] [place] [address] Unavailable ROSITA KELLER Next Of Kin [address] [place] [address] Insurance Providers Guarantor YaakovDonna Address [address] [place] [address] C Email [email or web address] Payer Self Pay Subscriber's Name RcDonna easton Relationship 18 Self Chief Complaint and Reason for Visit Chief Complaint Nausea,Vomiting,Diarrhea Reason for Visit Gastroenteritis Problems Active Problems Medical Problem Onset Date Status Bimalleolar fracture of right ankle Unknown Acute Chronic pain Unknown Closed fracture dislocation of right ankle joint Unknown Acute Dehydration Unknown Acute Elevated liver enzymes Unknown Acute Gastroenteritis Unknown Acute Headache Unknown Acute Headache Unknown Acute Hypokalemia Unknown Acute Hyponatremia Unknown Acute Peripheral edema Unknown Acute Pyelonephritis Unknown Acute Shoulder strain Unknown Acute Wound dehiscence Unknown Acute Past Problems Medical Problem Onset Date Atypical chest pain Unknown Chest pressure Unknown Chronic ankle pain Unknown Chronic pain of right ankle Unknown [...] being seen Unknown Right ankle sprain Unknown Schizoaffective disorder Unknown Schizoaffective disorder, bipolar type Unknown Medications Current Home Medications Medication Dose Units Route Directions Days Qty Instructions Start Date No Routine Meds 05/08/16 Past Home Medications Medication Directions Ordered Status [...] Allergy Relief 50 Mcg/Actuation Nasal) 9.9 Ml Sunman.susp, 1 SprayEach Nostril Daily 11/09/15 Discontinued Folic Acid 1 Mg Tablet, 1 Tab Oral Daily 11/26/15 Discontinued Geodon , 02/26/14 Discontinued Guaifenesin/Dextromethorphan (Mucinex Fast-Max Dm Max Liquid) 180 Ml Liquid, 2 Tbs Oral As Needed 01/01/15 Discontinued Hydrocodone Bit/Acetaminophen (Lortab 5) 1 Tab Tablet, 1 Tab Oral As Needed 09/12/11 Discontinued Hydrocodone/Acetaminophen (Hudgins 5-325 Tablet) 1 Each Tablet, 1 Tab [...] Use Y HX OF MARIJUANA FOR PAIN 05/08/2016 6:04pm Not Applicable Not Applicable Hx Alcohol Use No 05/08/2016 6:04pm Not Applicable Not Applicable Has the pt used tobacco in the last 12 months Yes 12/20/2015 11:05am Not Applicable Not Applicable Tobacco Usage smoke 01/10/2015 8:38am Not Applicable Not Applicable Query Response Start Date Stop Date Smoking Status Current every day smoker Hospital Discharge Instructions No hospital discharge instructions. Plan of Care Discharge Date 05/08/16 8:40pm Disposition 01 DISCHARGED HOME, SELF-CARE Condition at Discharge Improved Instructions/Education Provided Gastroenteritis (ED) Prescriptions See Medication Section Referrals GIANNA RODRIGUES DO Order Date: 3 Days Address: [place] [phone] Note: Additional Instructions/Education We have evaluated you for emergency causes of your abdominal pain. It appears that you still have gastroenteritis (a stomach bug). Drink plenty of fluids and take naproxen as needed for your pain. Use the zofran as needed for your nausea. You should discuss starting a medication for your anxiety (either an SSRI for baseline anxiety, or something for panic attacks). Talk to your doctor about this. Care Plan and Goals Physician Care Plan Problem: GE Goal: Follow up with primary care provider Instructions: Take medications and follow care plan as discussed/written Functional Status No functional status results. Allergies, Adverse Reactions, Alerts Allergen Type Severity Reaction Status Last Updated Penicillin Allergy Unknown RASH Active 05/08/16 Sulfa (Sulfonamide Antibiotics) Allergy Unknown Active 05/08/16 Sulfamethoxazole Allergy Unknown Active 05/08/16 Trimethoprim Allergy Unknown Active 05/08/16 Gluten Adverse Reaction Intermediate SICK/ VOMITING Active 05/08/16 Immunizations Query Response on File Recorded Date/Time Hx Influenza Vaccination Y NOV 2015 12/20/15 11:05am Hx Pneumococcal Vaccination No 12/20/15 11:05am Hx Tetanus, Diptheria, Pertussis N/A SKIN INTACT 02/26/14 10:36pm Hx Influenza Vaccination Y NOV 2015 12/20/15 11:05am Hx Tetanus, Diptheria, Pertussis N/A SKIN INTACT 02/26/14 10:36pm DTaP Vaccine History 201405/08/16 6:04pm Influenza Vaccine Hx 01/07/16 05/08/16 6:04pm Tdap Vaccine Hx UTD 01/04/16 1:21am Vital Signs Acute Vital Signs Vital Response Date/Time Temperature (Fahrenheit) 98.5 deg F (96.8 - 99.1) 05/08/2016 8:40pm Temperature (Calculated Celsius) 36.52396 degrees C (36.0 - 37.3) 05/08/2016 8:40pm Pulse Rate (adult) 76 bpm (60 - 100) 05/08/2016 8:40pm Respiratory Rate 14 breaths/min (10 - 20) 05/08/2016 8:40pm O2 Sat by Pulse Oximetry 96 % (90 - 100) 05/08/2016 8:40pm Blood Pressure 114/65 mm Hg 05/08/2016 8:40pm Height (Feet) 5 feet 05/08/2016 4:25pm Height (Inches) 3.00 inches 05/08/2016 4:25pm Weight (Kilograms) 56.400 kg 05/08/2016 4:25pm Body Mass Index (BMI) 22.0 05/08/2016 4:25pm Results Laboratory Results Test Name Result Units Flags Reference Collection Date/Time Result Date/ Time Comments Acetaminophen Level < 10 UG/ML L 10-30 04/11/2016 3:40pm 04/11/2016 4: 03pm TOXIC <4 HR POST INGESTION: >150 MG/L; TOXIC <12 HR POST INGESTION: >50 MG/L Salicylates Level < 1.0 MG/DL L 2-20 04/11/2016 3:40pm 04/11/2016 4: 03pm Alcohol, Quantitative <10 MG/DL <10 04/11/2016 3:40pm 04/11/2016 4: 03pm Thyroid Stimulating Hormone (TSH) 2.95 MIU/L D 0.47-4.68 04/11/2016 3: 40pm 04/11/2016 4:29pm White Blood Count 8.1 T/MM3 4.5-11.0 05/08/2016 6:56pm 05/08/2016 7: 14pm Red Blood Count 4.64 M/MM3 4.00-5.20 05/08/2016 6:56pm 05/08/2016 7: 14pm Hemoglobin 13.9 GM/DL 12-16 05/08/2016 6:56pm 05/08/2016 7:14pm Hematocrit 40.1 % 36-46 05/08/2016 6:56pm 05/08/2016 7:14pm Mean Corpuscular Volume 86.4 UM3 80-100 05/08/2016 6:56pm 05/08/2016 7: 14pm Mean Corpuscular Hemoglobin 30.0 UUG 26-34 05/08/2016 6:56pm 2016 7:14pm Mean Corpuscular Hemoglobin Concent 34.7 GM/DL 31-37 05/08/2016 6:56pm 05/08/2016 7:14pm RDW Standard Deviation 49.5 FL 36.9-50.2 05/08/2016 6:56pm 05/08/2016 7 :14pm Platelet Count 311 T/MM3 130-400 05/08/2016 6:56pm 05/08/2016 7:14pm Mean Platelet Volume 10.4 UM3 9.4-12.4 05/08/2016 6:56pm 05/08/2016 7: 14pm Neutrophils (%) (Auto) 52.4 % 33-66 05/08/2016 6:56pm 05/08/2016 7: 14pm Lymphocytes (%) (Auto) 38.1 % 23-45 05/08/2016 6:56pm 05/08/2016 7: 14pm Monocytes (%) (Auto) 8.0 % 0-9.0 05/08/2016 6:56pm 05/08/2016 7:14pm Eosinophils (%) (Auto) 1.0 % 0-4 05/08/2016 6:56pm 05/08/2016 7:14pm Basophils (%) (Auto) 0.4 % 0-2 05/08/2016 6:56pm 05/08/2016 7:14pm Immature Granulocyte % (Auto) 0.1 % 0.0-0.5 05/08/2016 6:56pm 2016 7:14pm Absolute Neutrophils (auto) 4.2 T/MM3 1.8-7.7 05/08/2016 6:56pm 2016 7:14pm Absolute Lymphocytes (auto) 3.1 T/MM3 1-4.8 05/08/2016 6:56pm 2016 7:14pm Absolute Monocytes (auto) 0.6 T/MM3 0-0.8 05/08/2016 6:56pm 05/08/2016 7:14pm Absolute Eosinophils (auto) 0.1 T/MM3 0-0.5 05/08/2016 6:56pm 2016 7:14pm Absolute Basophils (auto) 0.0 T/MM3 0-0.2 05/08/2016 6:56pm 05/08/2016 7:14pm Absolute Immature Granulocyte (auto 0.01 T/MM3 0.00-0.03 05/08/2016 6: 56pm 05/08/2016 7:14pm Icterus Index < 2 0-7 05/08/2016 6:56pm 05/08/2016 7:21pm Chemistry Specimen Hemolysis < 15 0-25 05/08/2016 6:56pm 05/08/2016 7 :21pm 0-25: Specimen Exhibited No Hemolysis. Turbidity < 20 0-20 05/08/2016 6:56pm 05/08/2016 7:21pm Sodium Level 144 MEQ/L 134-144 05/08/2016 6:56pm 05/08/2016 7:21pm Potassium Level 3.7 MEQ/L 3.6-5 05/08/2016 6:56pm 05/08/2016 7:21pm Chloride Level 108 MEQ/L H 98-107 05/08/2016 6:56pm 05/08/2016 7:21pm Carbon Dioxide Level 29 MEQ/L 22-30 05/08/2016 6:56pm 05/08/2016 7: 21pm Anion Gap 7 MEQ/L 5-15 05/08/2016 6:56pm 05/08/2016 7:21pm Blood Urea Nitrogen 3.0 MG/DL L 7-17 05/08/2016 6:56pm 05/08/2016 7: 21pm Creatinine 0.8 MG/DL 0.7-1.2 05/08/2016 6:56pm 05/08/2016 7:21pm BUN/Creatinine Ratio 4 RATIO L 6-26 05/08/2016 6:56pm 05/08/2016 7:21pm Glomerular Filtration Rate Calc 80 05/08/2016 6:56pm 05/08/2016 7: 21pm Glucose Level 96 MG/DL 65-110 05/08/2016 6:56pm 05/08/2016 7:21pm Calculated Osmolality 274 MOSM/KG 261-280 05/08/2016 6:56pm 05/08/2016 7:21pm Calcium Level 10.0 MG/DL 8.4-10.2 05/08/2016 6:56pm 05/08/2016 7:21pm Total Bilirubin 0.70 MG/DL 0.20-1.30 05/08/2016 6:56pm 05/08/2016 7: 21pm Alkaline Phosphatase 91 U/L 38-126 05/08/2016 6:56pm 05/08/2016 7:21pm Total Protein 7.5 G/DL 6.3-8.2 05/08/2016 6:56pm 05/08/2016 7:21pm Albumin 4.2 G/DL 3.5-5.0 05/08/2016 6:56pm 05/08/2016 7:21pm Globulin 3.3 G/DL 2.4-3.6 05/08/2016 6:56pm 05/08/2016 7:21pm Albumin/Globulin Ratio 1.3 RATIO 1.1-2.2 05/08/2016 6:56pm 05/08/2016 7 :21pm Aspartate Amino Transf (AST/SGOT) 15 U/L 14-36 05/08/2016 6:56pm 2016 7:21pm Alanine Aminotransferase (ALT/SGPT) 25 U/L 9-52 05/08/2016 6:56pm 05/08 7:21pm C-Reactive Protein 15.4 MG/L H 0-9 05/08/2016 6:56pm 05/08/2016 7:21pm Lipase 51 U/L 23-300 05/08/2016 6:56pm 05/08/2016 7:21pm Plasma Lactate 0.7 MMOL/L 0.6-2.2 05/08/2016 6:57pm 05/08/2016 7:23pm Urine Collection Type CLEANCATCH-MIDSTREAM 05/08/2016 7:48pm 2016 7:55pm Urine Color YELLOW YELLOW 05/08/2016 7:48pm 05/08/2016 7:55pm Urine Turbidity CLEAR CLEAR 05/08/2016 7:48pm 05/08/2016 7:55pm Urine Specific [place] 1.010 L 1.015-1.025 05/08/2016 7:48pm 2016 7:55pm Urine pH 5.5 5.0-8.0 05/08/2016 7:48pm 05/08/2016 7:55pm Urine Leukocyte Esterase NEGATIVE NEGATIVE 05/08/2016 7:48pm 2016 7:55pm Urine Nitrite NEGATIVE NEGATIVE 05/08/2016 7:48pm 05/08/2016 7:55pm Urine Protein NEGATIVE NEGATIVE 05/08/2016 7:48pm 05/08/2016 7:55pm Urine Glucose (UA) NEGATIVE NEGATIVE 05/08/2016 7:48pm 05/08/2016 7: 55pm Urine Ketones NEGATIVE NEGATIVE 05/08/2016 7:48pm 05/08/2016 7:55pm Urine Urobilinogen 0.2 EU/DL NORMAL 05/08/2016 7:48pm 05/08/2016 7: 55pm Urine Bilirubin NEGATIVE NEGATIVE 05/08/2016 7:48pm 05/08/2016 7: 55pm Urine Blood NEGATIVE NEGATIVE 05/08/2016 7:48pm 05/08/2016 7:55pm Urinalysis Comment MICROSCOPIC NOT IND. 05/08/2016 7:48pm 2016 7:55pm Microbiology Results Procedure Source Organism/Result Collection Date/Time Result Date/Time Result Status Blood Culture Peripheral/Iv Start CULTURE INITIATED - RESULTS PENDING 05/08 6:56pm 05/08/2016 7:02pm Preliminary Procedures Procedure Status Date Provider(s) Mri lumbar spine w/o dye Completed 02/27/16 Musc test done w/n test comp Completed 03/19/16 Nrv cndj test 11-12 studies Completed 03/19/16 Ct head/brain w/o dye Completed 03/19/16 Ther/proph/diag inj sc/im Completed 03/19/16 Ther/proph/diag inj sc/im Completed 03/19/16 Emergency dept visit Completed 03/19/16"INJECTION, PROCHLORPERAZINE, UP TO 10 MG" Completed 03/19/16"INJECTION, HYDROMORPHONE, UP TO 4 MG" Completed 03/19/16"INJECTION, KETOROLAC TROMETHAMINE, PER 15 MG" Completed 03/19/16"INJECTION, ORPHENADRINE CITRATE, UP TO 60 MG" Completed 03/19/16 Encounters Encounter Location Arrival/Admit Date Discharge/Depart Date Attending Provider Departed Emergency Room [facility] 05/08/16 4:14pm 05/08/16 8: 40pm STEPHEN MARINO DO Departed Emergency Room [facility] 05/05/16 10:05am 05/05/16 1: 20pm BEULAH GATES MD Registered [facility] 04/22/16 12:08pm GIANNA RODRIGUES DO Departed Emergency Room [facility] 04/11/16 2:44pm 04/11/16 6: 07pm MAMADOU ALEXANDER DO Departed Emergency Room [facility] 03/19/16 8:46pm 03/19/16 9: 51pm SWATI HOWARD MD Registered [facility] 03/19/16 1:52pm KAREN VALLADARES MD Registered [facility] 02/27/16 1:55pm KAREN VALLADARES MD Recent Diagnosis
[2016-05-31 14:02] VITALS: Ht 160 cm; Wt 53.9 kg
--- NOTE | 2016-05-31 14:02 | NUR ---
TRIAGE NOTE WHILE IN THE LOBBY CALLING PT'S NAME, PT AND HER MOTHER BEGAN TO YELL AT EACHOTHER, PT STATES SHE DOESN'T WANT TO BE HERE AND SHE DOESN'T WANT TO WAIT AND MOTHER YELLS AT HER "GET IN THERE". PT RELUCTANTLY WALKS TO TRIAGE ROOM WITHOUT DIFFICULITES AND PT'S MOTHER IS LEFT IN THE LOBBY. PT STATES SHE HAS BEEN LIVING WITH 10/10 PAIN TO HER ENTIRE BODY FOR THE PAST YEAR, HAS A HX OF FIBROMYALGIA BUT HER "FIBRO DOCTOR" IN WHICH STATES THIS IS NOT FIBROMYALGIC PAIN. PT STATES THIS WEEK DR. RODRIGUES FIRED HER BEFORE HE WOULD GIVE HER A REFERAL TO PAIN MANAGEMENT. PT STATES HER MOTHER CAME HERE TODAY BECAUSE SHE IS "SICK OF DEALING WITH ME". PT REPORTS SHE HAS AN RX FOR LYRICA BUT CAN NOT AFFORD TO FILL IT. PT DOES NOT APPEAR TO BE IN ANY DISTRESS AT THIS TIME, DENIES TAKING ANY OTC MEDICATIONS FOR PAIN. PT DOES APPEAR TO BE JITTERY, UNABLE TO SIT STILL, CHEWING ON HER BOTTOM LIP. PT STATES SOON SHE GETS TO THE LOBBY SHE IS LEAVING.
[2016-05-31 14:27] VITALS: BP 123/85; PULSE 98; RESP 14; TEMP 98.5; O2SAT 96
--- NOTE | 2016-05-31 14:27 | NUR ---
LWBS NOTE PT IS INSISTS SHE IS LEAVING. PT CAN SEE THAT THE LOBBY IS FULL AND PT HAS ALREADY BEEN TOLD THAT SHE WILL HAVE TO WAIT TO GET INTO A ROOM. PT STATES "YOU GUYS NEVER DO ANYTHING FOR ME" AND "THAT SHORT LITTLE DOCTOR ALREADY TOLD ME I AM A PUZZLE AND HE CAN'T FIX ME". PT CRYING THAT SOMETIMES SHE WILL GET A SHOT HERE BUT IT ONLY LASTS FOR A HOUR OR TWO AND WE/THE ED, WILL NOT GIVE HER A PRESCRPITION AND WE WON'T/CAN'T FIX HER AND SHE'D RATHER JUST BE IN PAIN AT HOME. PT ALLOWS RN TO SPEAK TO PT'S MOTHER WHO IS UPSET AND FEELS LIKE PT SHOULD STAY HERE AND POSSIBLY BE ADMITTED AND HAVE TESTS DONE TO FIND OUT WHAT IS WRONG WITH PT. MOTHER IS UPSET THAT PT HAS NO DOCTOR, NO REFERAL TO PAIN MANAGEMENT, AND NEVER SEEMS TO HAVE ANY RELIEF FROM PAIN. PT AND MOTHER ARE GIVE INFORMATION ABOUT OTHER REDUCED INCOME OR FREE CLINIC'S IN [place]. PT SIGNS LWBS FORM AND MOTHER SIGNS A WITNESS. PT IS AMBULATORY OUT OF THE ED AND DOES NOT APPEAR TO BE IN ANY ACUTE DISTRESS.
--- OUTSIDE RECORDS SUMMARY | 2016-05-31 14:34 | XMS REPORT | Continuity of Care Document ---
Author Author [facility] Organization [facility] Address Unknown Phone Unavailable Support Name Relationship Address Phone BKLUIS FOWLER Caregiver [facility] [address] [place], [place] [phone] SAMANTHA GARCIA MD Caregiver [facility] [address] [place] [address] FLORIDALMA SCOTT Next Of Kin [address] [place] [address] CP Insurance Providers Payer Name Policy Number [...] F (96.8 - 99.1) Temperature (Calculated Celsius) 36.62417 degrees C (36.0 - 37.3) Pulse Rate [...] Has specimen been collected/obtained? Y Urine Specific [place] May 16, 2013 6:29pm <=1.005 L - [...] 25, 2013 12:34pm LAB RESULTS - SCANNED [id number] - HDL Cholesterol Direct December 19, 2010 [...] May 16, 2013 6:29pm < 2 0-7 SE-Dnf-M-Type Natriuretic Peptide January 04, 2012 11:20pm 98 [...] Encounters Encounter Location Date/Time Departed Emergency Room [facility] 10/27/13 9:37am Recent Diagnosis
--- OUTSIDE RECORDS SUMMARY | 2016-05-31 14:35 | XMS REPORT | Continuity of Care Document ---
Author Author [facility] Organization [facility] Address Unknown Phone Unavailable Support Name Relationship Address Phone SWATI HOWARD MD Caregiver [facility] [address] [place] [address] Unavailable SAMANTHA GARCIA MD Caregiver [facility] [address] [place], [place] [phone] KRISHNA ROSITA Next Of Kin [address] [place], [place] [id number] CP Insurance Providers Payer Name Policy Number [...] F (96.8 - 99.1) Temperature (Calculated Celsius) 36.21018 degrees C (36.0 - 37.3) Pulse Rate [...] Has specimen been collected/obtained? Y Urine Specific [place] May 16, 2013 6:29pm <=1.005 L - [...] 25, 2013 12:34pm LAB RESULTS - SCANNED [id number] - HDL Cholesterol Direct December 19, 2010 [...] May 16, 2013 6:29pm < 2 0-7 CK-Otr-K-Type Natriuretic Peptide January 04, 2012 11:20pm 98 [...] Encounters Encounter Location Date/Time Departed Emergency Room [facility] 02/26/14 10:36pm Recent Diagnosis
== END 2016-05-31 14:27 | disposition left against medical advice (07) ==
LOC: ED 13:49
DX: Z53.21 Procedure and treatment not carried out due to patient leaving prior to being seen by health care provider (principal)

== ENCOUNTER 2016-06-02 10:47 | Emergency (ER) | payer SELFPAY ==
[~2016-06-02] VITALS: Ht 160 cm; Wt 57.7 kg
[2016-06-02 10:53] VITALS: Ht 160 cm; Wt 57.7 kg
--- OUTSIDE RECORDS SUMMARY | 2016-06-02 10:54 | XMS REPORT | Continuity of Care Document ---
Author Author [facility] Organization [facility] Address Unknown Phone Unavailable Support Name Relationship Address Phone BKLUIS FOWLER Caregiver [facility] [address] [place], [place] [phone] SAMANTHA GARCIA MD Caregiver [facility] [address] [place] [address] FLORIDALMA SCOTT Next Of Kin [address] [place] [address] CP Insurance Providers Payer Name Policy Number [...] F (96.8 - 99.1) Temperature (Calculated Celsius) 36.04109 degrees C (36.0 - 37.3) Pulse Rate [...] Has specimen been collected/obtained? Y Urine Specific [place] May 16, 2013 6:29pm <=1.005 L - [...] 25, 2013 12:34pm LAB RESULTS - SCANNED [id number] - HDL Cholesterol Direct December 19, 2010 [...] May 16, 2013 6:29pm < 2 0-7 HK-Yil-I-Type Natriuretic Peptide January 04, 2012 11:20pm 98 [...] Encounters Encounter Location Date/Time Departed Emergency Room [facility] 10/27/13 9:37am Recent Diagnosis
--- OUTSIDE RECORDS SUMMARY | 2016-06-02 10:54 | XMS REPORT | Continuity of Care Document ---
Author Author [facility] Organization [facility] Address Unknown Phone Unavailable Support Name Relationship Address Phone SWATI HOWARD MD Caregiver [facility] [address] [place] [address] Unavailable SAMANTHA GARCIA MD Caregiver [facility] [address] [place], [place] [id number] KRISHNA ROSITA Next Of Kin [address] [place], [place] [phone] CP Insurance Providers Payer Name Policy Number [...] F (96.8 - 99.1) Temperature (Calculated Celsius) 36.93127 degrees C (36.0 - 37.3) Pulse Rate [...] Has specimen been collected/obtained? Y Urine Specific [place] May 16, 2013 6:29pm <=1.005 L - [...] 25, 2013 12:34pm LAB RESULTS - SCANNED [id number] - HDL Cholesterol Direct December 19, 2010 [...] May 16, 2013 6:29pm < 2 0-7 EQ-Bkn-D-Type Natriuretic Peptide January 04, 2012 11:20pm 98 [...] Encounters Encounter Location Date/Time Departed Emergency Room [facility] 02/26/14 10:36pm Recent Diagnosis
--- NOTE | 2016-06-02 12:04 | NUR ---
PROVIDER RANJAN VAZQUEZ SEE PT AT THIS TIME.
--- NOTE | 2016-06-02 12:06 | NUR ---
REPORT TO RANCHO OCONNELL FOR [facility].
--- NOTE | 2016-06-02 12:10 | ERPDOC ---
Departure Disposition Decision Date: Jun 02, 2016 Disposition Decision Time: 12:11 (ANNE AVALOS APRN) Disposition: 01 DISCHARGED HOME, SELF-CARE Impression Impression (ANNE AVALOS APRN) Impression: Primary Impression: Abscess, dental Severity: Moderate (ANNE AVALOS APRN) Condition: Stable Seen By: Mid-level only (ANNE AVALOS APRN) Referrals: GIANNA RODRIGUES DO (PCP/Family) Patient Instructions: Dental Abscess (ED) Problems/Meds/Labs Reviewed?: Yes Medications reviewed and manag: Yes (ANNE AVALOS APRN) Additional Instructions: We did give you an injection of Rocephin today but I do want you to go ahead and start the Clindamycin today as well. Use the [place] as needed for pain. Follow up in [address] Pearce as scheduled or return to ER with any worsening of symptoms. Follow up care ordered?: Yes Mental Status: Alert, Oriented (ANNE AVALOS APRN) HPI General Chief Complaint: Toothache Stated Complaint: DENTAL PAIN/SWELLING Time Seen by Provider: 12:01 Source: patient Exam Limitations: no limitations (ANNE AVALOS APRN) Time Seen by Provider: 12:01 (WILLY OLPEZ MD) HPI Dental Initial Comments She has had some trouble with left facial swelling and left upper dental pain for the last 5 days. 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 Has not started this yet. She has a follow up appointment scheduled with him in 2 weeks for repair of the teeth. He had told her that if she came to ER they could give her an injection of an antibiotic to get her started a little quicker on the healing. She does have an allergy to Penicillin but has taken Keflex without trouble before. Has had some chills but no fever. Occurred At: home Onset: Gradual Duration: other (Over the last 5 days) Severity: moderate Location: L upper 1 - area of swelling and pain, multiple caries and broken teeth in this region. Problem: chipped tooth, fractured tooth Associated Symptoms: cheek swelling, facial swelling, DENIES: cough, dental trauma, diarrhea, drooling, dyspnea, fever, fractured tooth, gum laceration, gum swelling, headache, high pitched cry/voice, hoarseness, impacted tooth, loose tooth, nausea, retained foreign body, rhinorrhea, sinus drainage, sinus pain, trouble chewing, trouble swallowing, vomiting (ANNE AVALOS APRN) Allergies: Coded Allergies: Penicillins (Verified Allergy, Unknown, RASH, 06/02/16) Sulfa (Sulfonamide Antibiotics) (Verified Allergy, Unknown, 06/02/16) sulfamethoxazole (Verified Allergy, Unknown, 06/02/16) trimethoprim (Verified Allergy, Unknown, 06/02/16) gluten (Verified Adverse Reaction, Intermediate, SICK/ VOMITING, 06/02/16) Past History Patient Surgical History Open reduction and internal fixation of right ankle in May 2015 (ANNE AVALOS APRN) Past Medical History Metabolic: hypertension Respiratory: pneumonia GI: GERD, gallbladder disease, ulcers Female: endometriosis Neurological: fibromyalgia, headaches Musculoskeletal: osteoarthritis Psychological: bipolar, depression, drug abuse, psychosis, schizophrenia (ANNE AVALOS APRN) Surgical History General: EGD, appendix, colonoscopy, exploratory laparotomy, gallbladder Reproductive/: D&C, hysterectomy Joint: other (ANNE AVALOS APRN) Family History Family PMH: FOUND: cancer, diabetes, hypertension (ANNE AVALOS APRN) Vaccines Hx Influenza Vaccination: Yes (NOV 2015) Hx Pneumococcal Vaccination: No (ANNE AVALOS APRN) Social History Does patient use chewing tobac: No # of Packs/Tins per Day: 1 # of Years: 20 Substance Use Type: former substance user Sexuality: male partner (ANNE AVALOS APRN) Review of Systems Constitutional Constitutional: chills, DENIES: appetite decrease, dizziness, fatigue, fever, weakness (ANNE AVALOS N RESTAURANT GREETER) ENMT Ears: DENIES: drainage, pain Sinuses: DENIES: congestion, rhinorrhea Mouth/Throat: caries, other (left upper gum swelling and tenderness), DENIES: change in voice, drooling, hoarsness, painful swallowing, scratchy throat, sore throat Teeth: pain (left upper jaw) (ANNE AVALOS N RESTAURANT GREETER) Neurological General: DENIES: headache, numbness, tingling, weakness (ANNE AVALOS APRN) Exam General General Nourishment: well nourished, well developed, appears stated age, no acute distress, adult General Body Habitus: well groomed Vital Signs: RN Vital Signs have been reviewed: Yes, Temperature: 98.4, Source : Oral, Heart Rate: 89, Respiratory Rate: 18, BP: 120/77, Pulse Oximetry: 99 Height (Feet): 5 Height (Inches): 3.00 (ANNE AVALOS APRN) [facility] Dental Face: swelling (left cheek), tender (left cheek), NOT FOUND: asymmetry, bruising, erythema, numbness Jaw: NOT FOUND: asymmetry, trismus Glands: NOT FOUND: L parotid swollen, L submandibular swollen, R parotid swollen, R submandibular swollen Lips: NOT FOUDN: swelling Gums: moist, pink, swelling (left upper gums with erythema and tenderness), NOT FOUND: exudate, lesion Tongue: NOT FOUND: swelling Teeth: caries, fractures, missing, NOT FOUND: crowns, implants Pharynx: NOT FOUND: erythema, exudate, lateral pillar signs, swelling, uvular deviation Tonsils: NOT FOUND: erythema, exudate Neck: NOT FOUND: L anterior adenopathy, L posterior adenopathy, R anterior adenopathy, R posterior adenopathy (ANNE AVALOS APRN) Neurologic RN Documented GCS Eye Opening: Verbal: Motor: Total: (ANNE AVALOS APRN) Differential Diagnoses Considering: Gingival Abscess, Peritonsillar Abscess, Caries, Gingivitis (ANNE AVALOS APRN) Progress Results/Orders Orders Procedure Category Date Status Time Ceftriaxone (Rocephin) PHA 06/02/16 Complete 12:15 (WILLY LOPEZ MD) Medications Current ED Medications Ceftriaxone Sodium (Rocephin) 1 g O ONCE IM Last administered on 06/02/16t 12: 24; Start 06/02/16 at 12:15; Stop 06/02/16 at 12:16; Status DC (WILLY LOPEZ MD) Progress Progress Will go ahead and have her start the Clinda tablets that she has picked up and take the [place] as needed for pain. Will give her an injection of IM Rocephin as well. Have her follow up in [address] Pearce or return to ER if not improving at all. (ANNE AVALOS APRN) Progress Patient's history and exam discussed with ELECTRIC W[employer]ER. Agree with care given in ER with IM antibiotic as well as follow up plan. (WILLY LOPEZ MD) ANNE AVALOS APRN Jun 02, 2016 12:09 WILLY LOPEZ MD Jun 02, 2016 13:58
[2016-06-02] MEDS ORDERED: CLIN300C86 PO (12:12)
[2016-06-02] MEDS ORDERED: HYDR-4246 PO (12:12)
[2016-06-02] MEDS ORDERED: CEFTRIAXONE 1 GRAM INJECTION IM ONE (12:15)
--- OUTSIDE RECORDS SUMMARY | 2016-06-02 12:22 | XMS REPORT | Continuity of Care Document ---
Author Author [facility] Organization [facility] Address Unknown Phone Unavailable Support Name Relationship Address Phone BKLUIS FOWLER Caregiver [facility] [address] [place], [place] [id number] SAMANTHA GARCIA MD Caregiver [facility] [address] [place] [address] FLORIDALMA SCOTT Next Of Kin [address] [place] [address] CP Insurance Providers Payer Name Policy Number [...] F (96.8 - 99.1) Temperature (Calculated Celsius) [id number] degrees C (36.0 - 37.3) Pulse Rate [...] Has specimen been collected/obtained? Y Urine Specific Webb May 16, 2013 6:29pm <=1.005 L - [...] 25, 2013 12:34pm LAB RESULTS - SCANNED [id number] - HDL Cholesterol Direct December 19, 2010 [...] May 16, 2013 6:29pm < 2 0-7 FV-Kyc-B-Type Natriuretic Peptide January 04, 2012 11:20pm 98 [...] Encounters Encounter Location Date/Time Departed Emergency Room [facility] 10/27/13 9:37am Recent Diagnosis
--- OUTSIDE RECORDS SUMMARY | 2016-06-02 12:22 | XMS REPORT | Continuity of Care Document ---
Author Author [facility] Organization [facility] Address Unknown Phone Unavailable Support Name Relationship Address Phone SWATI HOWARD MD Caregiver [facility] [address] [place] [address] Unavailable SAMANTHA GARCIA MD Caregiver [facility] [address] [place], [place] [phone] KRISHNA ROSITA Next Of Kin [address] [place], [place] [id number] CP Insurance Providers Payer Name Policy Number [...] F (96.8 - 99.1) Temperature (Calculated Celsius) [id number] degrees C (36.0 - 37.3) Pulse Rate [...] Has specimen been collected/obtained? Y Urine Specific Shaw May 16, 2013 6:29pm <=1.005 L - [...] 25, 2013 12:34pm LAB RESULTS - SCANNED [id number] - HDL Cholesterol Direct December 19, 2010 [...] May 16, 2013 6:29pm < 2 0-7 TD-Gof-Y-Type Natriuretic Peptide January 04, 2012 11:20pm 98 [...] Encounters Encounter Location Date/Time Departed Emergency Room [facility] 02/26/14 10:36pm Recent Diagnosis
[2016-06-02 12:47] VITALS: BP 120/74; PULSE 87; RESP 20; TEMP 98.9; O2SAT 98
--- NOTE | 2016-06-02 12:47 | NUR ---
DISCHARGE PT GIVEN INSTRUCTIONS FOR CONT CARE OF DENTAL ABSCESS, PT VERBALIZED UNDERSTANDNG AND SIGNED FORM, PT LEFT AMBULATORY W/O ASSIST, ALERT, VS CHARTED AND IN NO ACUTE DSTRESS.
--- NOTE | 2016-06-02 15:29 | NUR ---
ED FOLLOW UP THIS WORKER SPOKE TO PT BY PHONE ON THIS DATE. PT RECALLED THIS WORKER FROM PREVIOUS VISIT IN ED. THIS WORKER REVIEWED EMERGENCY ROOM VISITS AND FOLLOW UP RECOMMENDATIONS. PT PLANNING TO CONTACT [facility] TO GET FOLLOW UP APPOINTMENT SCHEDULED. PT HAS FOLLOW UP APPOINTMENT WITH DENTIST. PT REPORTED THAT SHE ALSO HAS FOLLOW UP WITH A RA DOCTOR IN [place]. PT REPORTED THAT SHE IS CONTINUING TO SEE THERAPIST AND MEDICATION PROVIDER AT [facility]. PT DENIED NEEDS AT THIS TIME. [facility] WAS ABLE TO HELP PT WITH GETTING MEDICATIONS ALL EXCEPT FOR THE LYRICA. THIS WORKER SUGGESTED TO PT THAT SHE SHOULD CALL HER RA DOCTOR TO SEE ABOUT SAMPLES. PT REPORTED THAT SHE HAS BEEN OFF WORK FOR ALMOST A WEEK. THIS WORKER ENCOURAGED PT TO CONTACT THIS WORKER WITH ANY NEEDS. PT THANKFUL FOR THIS WORKER'S CALL. Addendum: 06/02/16 at 1534 by TRUONG LUJAN Amended: Links added.
== END 2016-06-02 12:47 | disposition home or self-care (01) ==
LOC: ED 10:47
DX: K04.7 Periapical abscess without sinus (principal)
CPT/HCPCS: 96372